=== PATIENT | female | born 1995 | race African-American/Black ===

== ENCOUNTER 2017-01-24 21:53 | Emergency (ER) | payer MEDICAID ==
[2017-01-25 00:46] LABS: APPEARANCE,URINE SLIGHTLY-CLOUDY; BILIRUBIN,URINE NEGATIVE (NEGATIVE); GLUCOSE, URINE NEGATIVE (NEGATIVE); KETONES,URINE 80 mg/dL (NEGATIVE); LEUKOCYTE ESTERASE,URINE NEGATIVE (NEGATIVE); NITRITE,URINE NEGATIVE (NEGATIVE); PROTEIN,URINE >=500 mg/dL (NEGATIVE); URINE SPECIFIC GRAVITY 1.032; UROBILINOGEN,URINE NEGATIVE mg/dL (<2.0)
[2017-01-25 00:56] LABS: URINE BARBITURATES SCREEN NEGATIVE; URINE METHADONE SCREEN NEGATIVE; URINE OPIATES LOW NEGATIVE; URINE PHENCYCLIDINE SCREEN NEGATIVE
[2017-01-25] MEDS ORDERED: NORMAL SALINE 1000 ML 1,000 ML IV ONE ×2 (02:04→05:23)
--- NOTE | 2017-01-25 02:53 | ER Document Report ---
ED General - General Chief Complaint: Psych Problem Stated Complaint: ANXIETY Notes: Patient is a 21-year-old female presented with complaint of severe depression anxiety. She had a child 5 months ago. Family's concern shows post from depression. She will not talk to her mother. The mother says she will sometimes talk to her sister little bit. For last several days she has not eaten or drank anything. I was able to get the patient talk to me some. She says that she's been depressed and feels as of she is not feeling her full meaning of life. She says she is also depressed because her relationship with her baby's father is not good. She feels as if there could be more to this relationship. When I ask if she is suicidal she says she knows that doing something to herself will be wrong and therefore she does not think that she would do anything to herself however she is very depressed. She has no other complaints this time. No previous history of depression. TRAVEL OUTSIDE OF THE [place] IN LAST 30 DAYS: No - Related Data Allergies/Adverse Reactions: ibuprofen [From Motrin] Adverse Reaction (Mild, Verified 07/05/16 16:45) GI upset Past Medical History - Social History Smoking Status: Current Every Day Smoker Chew tobacco use (# tins/day): No Frequency of alcohol use: Social Drug Abuse: Marijuana Family History: None, Reviewed & Not Pertinent Patient has suicidal ideation: No Patient has homicidal ideation: Yes Endocrine Medical History: Denies: Hx Diabetes Mellitus Type 1 Renal/ Medical History: Denies: Hx Peritoneal Dialysis - Immunizations Immunizations up to date: No Hx Diphtheria, Pertussis, Tetanus Vaccination: No Review of Systems - Review of Systems Notes: My Normal Review Basic REVIEW OF SYSTEMS: CONSTITUTIONAL : Denies fever, chills, or sweats. Denies recent illness. EENT: Denies eye, ear, throat, or mouth pain or symptoms. Denies nasal or sinus congestion. CARDIOVASCULAR: Denies chest pain. RESPIRATORY: Denies cough, cold, or chest congestion. Denies shortness of breath, difficulty breathing, or wheezing. GASTROINTESTINAL: Denies abdominal pain. Denies nausea, vomiting, or diarrhea. Denies constipation. Last BM: MUSCULOSKELETAL: Denies neck or back pain or joint pain or swelling. SKIN: Denies rash or skin lesions. NEUROLOGICAL: Denies altered mental status or loss of consciousness. Denies headache. Denies weakness or paralysis or loss of use of either side. Denies problems with gait or speech. Denies sensory or motor loss. PSYCHIATRIC: Depression and anxiety. ALL OTHER SYSTEMS REVIEWED AND NEGATIVE. Physical Exam - Vital signs Vitals: Temp Pulse Resp BP Pulse Ox 97.9 F 106 H 18 113/81 99 01/24/17 22:36 01/24/17 22:36 01/24/17 22:36 01/24/17 22:36 01/24/17 22:36 - Notes Notes: General Appearance: Well nourished, alert, cooperative, no acute distress, no obvious discomfort. Poor eye contact. Vitals: reviewed, See vital signs table. Head: no swelling or tenderness to the head Eyes: PERRL, EOMI, Conjuctiva clear Mouth: No decreasd moisture Neck: Supple, no neck tenderness, No thyromegaly Lungs: No wheezing, No rales, No rhonci, No accessory muscle use, good air exchange bilaterally. Heart: Normal rate, Regular rythm, No murmur, no rub Skin: warm, dry, appropriate color, no rash Neuro: speech clear, oriented x 3, normal affect, responds appropriately to questions. Course - Vital Signs Vital signs: Temp Pulse Resp BP Pulse Ox 98.4 F 114 H 14 122/79 98 01/25/17 02:10 01/25/17 02:10 01/25/17 02:10 01/25/17 02:10 01/25/17 02:10 - Laboratory Result Diagrams: 01/25/17 02:30 01/25/17 02:30 Laboratory results interpreted by me: 01/24/17 01/25/17 23:13 02:30 Carbon Dioxide 14 L Anion Gap 25 H Glucose 73 L Calcium 10.9 H Total Protein 9.0 H Albumin 5.5 H Urine Protein >=500 H Urine Ketones 80 H Urine Blood LARGE H Urine Ascorbic Acid 20 H Salicylates < 1.0 L Acetaminophen < 10 L - EKG Interpretation by Me Additional EKG results interpreted by me: 01/25/17 02:52 EKG is reviewed and interpreted by me. EKG shows sinus tachycardia with a rate of [address] segment elevation or depression. No ischemic T wave inversions. MI interval, castration, QTC levels are within normal range. No old EKG available for comparison. - Transfer of Care Notes: 01/25/17 05:24 Patient is acidotic and his ketonuria. I suspect is because she has not been eating or drinking anything for last several days. I've given her 2 L of fluids. She otherwise clinically looks well. I do think she needs help because she does have significant depression. I have counseled the psychiatry team to evaluate and speak with her. She's medically stable for psychiatric evaluation. 01/25/17 06:06 01/25/17 06:11 Patient is actually feeling improved. Her was comes the room. Her, her boyfriend, and her mother talks. At this time she wants to go home. I still offered for her to stay to speak with her psychiatrist. Her mother says that she's made an appointment with the psychiatrist for January 29 and that she will also make an appointment to see the [facility]. I informed the patient that only focal splinter go home if she is feeling better and if she agrees she will start eating. I informed her that she started to come acidotic she was eating at all. Patient does agree and says she will start eating. Patient does agree to return to ER she has recurrence of worsening depression, any thoughts of suicide, or she feels unwell in anyway. The mother says that she will keep a close eye on her and make sure that the patient stays with her until they go to the psychiatrist. Dictation of this chart was performed using voice recognition software; therefore, there may be some unintended grammatical errors. 01/25/17 06:12 Discharge - Discharge Clinical Impression: Dehydration, Metabolic acidosis Depression Qualifiers: Depression Type: unspecified Qualified Code(s): F32.9 - Major depressive disorder, single episode, unspecified Condition: Good Disposition: HOME, SELF-CARE Additional Instructions: Please follow up closely with the appointment with the psychiatrist. Please return to the ER immediately if you develop worsening pain, fevers, vomiting, or feel unwell. Please follow up with the [facility] as well. It is very important you eat so that you do not become more acidotic. If you do not eat again you must return to the ER so we can treat you further. Referrals: LARON URIBE MD [Primary Care Provider] - 01/28/17
[2017-01-25 03:07] LABS: ABSOLUTE BASOPHILS # (AUTO) 0.1 10^3/uL (0.0-0.2); ABSOLUTE EOSINOPHILS # (AUTO) 0.1 10^3/uL (0.0-0.6); ABSOLUTE MONOCYTES (AUTO) 0.7 10^3/uL (0.1-1.4); ABSOLUTE NEUT (AUTO) 5.8 10^3/uL (1.7-8.2); BASOPHILS % (AUTO) 0.8 % (0-2); EOSINOPHILS % (AUTO) 1.5 % (0-6); HEMATOCRIT 41.8 % (36.0-47.0); HEMOGLOBIN 14.1 g/dL (12.0-15.5); HGB HCT DIFFERENCE 0.5; LYMPHOCYTES % (AUTO) 31.3 % (13-45); MEAN CORPUSCULAR HGB CONC 33.7 g/dL (32.0-36.0); MEAN CORPUSCULAR VOLUME 92 fl (80-97); MONOCYTES % (AUTO) 7.3 % (3-13); RED BLOOD COUNT 4.55 10^6/uL (3.72-5.28); RED CELL DISTRIBUTION WIDTH 13.9 % (11.5-14.0); SEGMENTED NEUTROPHILS % (AUTO) 59.1 % (42-78); WHITE BLOOD COUNT 9.7 10^3/uL (4.0-10.5)
[2017-01-25 03:21] LABS: ALANINE AMINOTRANSFERASE 27 U/L (9-52); ALBUMIN 5.5 g/dL (3.5-5.0); ALKALINE PHOSPHATASE 77 U/L (38-126); ASPARTATE AMINO TRANSFERASE 22 U/L (14-36); BILIRUBIN,TOTAL 1.3 mg/dL (0.2-1.3); BLOOD UREA NITROGEN 12 mg/dL (7-20); CALCIUM 10.9 mg/dL (8.4-10.2); CARBON DIOXIDE 14 mmol/L (22-30); CREATININE RESULT 0.77 mg/dL (0.52-1.25); GLUCOSE 73 mg/dL (75-110); POTASSIUM 4.4 mmol/L (3.6-5.0); SODIUM 141.6 mmol/L (137-145)
[2017-01-25 03:43] LABS: ALCOHOL < 10 mg/dL (NONE DETECTED)
[2017-01-25 03:50] LABS: CHLORIDE 103 mmol/L (98-107)
[2017-01-25 03:53] LABS: ANION GAP 25 (5-19)
[2017-01-25] MEDS ORDERED: LORAZEPAM INJ 2 MG/1 ML VIAL IV ONE (04:21)
[2017-01-25 07:55] VITALS: BP 117/71
--- NOTE | 2017-01-25 10:59 | PSYCHOLOGICAL NOTE ---
Psych Note - Psych Note Psych Note: Consult requested for Psychiatric Consult; Patient discharged prior to being seen.
--- NOTE | 2017-01-25 16:57 | EKG REPORT ---
SEVERITY:- ABNORMAL ECG - SINUS TACHYCARDIA ST ELEVATION SUGGESTS PERICARDITIS : Confirmed by: Kayleigh Shearer MD 25-Jan-2017 16:56:21
== END 2017-01-25 07:52 | disposition home or self-care (01) ==
LOC: ER 21:53
DX: F41.9 Anxiety disorder, unspecified (principal); F32.9 Major depressive disorder, single episode, unspecified; E87.2 Acidosis; E86.0 Dehydration; F17.200 Nicotine dependence, unspecified, uncomplicated; R00.0 Tachycardia, unspecified
CPT/HCPCS: 93005; 99284; 96361; 96374; 36415; 80307 ×4; 82728; 85025; 80053; 81001; 93010; J2060; J7030

== ENCOUNTER 2017-01-28 16:02 | Emergency (ER) | payer MEDICAID ==
--- NOTE | 2017-01-28 16:18 | ER Document Report ---
ED General - General Stated Complaint: PSYCH EVAL Mode of Arrival: Medic Information source: Emergency Med Personnel, H Records Notes: 21-year-old female history of depression presents today with complaints of refusing to speak and being combative. Patient was seen here recently for similar complaints Patient's only statement to me is that she is "I'm straight" and refuses to speak otherwise TRAVEL OUTSIDE OF THE [place] IN LAST 30 DAYS: No - HPI Onset: Other Onset/Duration: Persistent Quality of pain: No pain Severity: Mild Pain Level: Denies Associated symptoms: None Exacerbated by: Denies Relieved by: Denies Similar symptoms previously: No Recently seen / treated by doctor: No - Related Data Allergies/Adverse Reactions: ibuprofen [From Motrin] Adverse Reaction (Mild, Verified 07/05/16 16:45) GI upset Past Medical History - Social History Smoking Status: Never Smoker Cigarette use (# per day): No Chew tobacco use (# tins/day): No Smoking Education Provided: No Family History: None, Reviewed & Not Pertinent Endocrine Medical History: Denies: Hx Diabetes Mellitus Type 1 Renal/ Medical History: Denies: Hx Peritoneal Dialysis - Immunizations Immunizations up to date: No Hx Diphtheria, Pertussis, Tetanus Vaccination: No Review of Systems - Review of Systems Notes: REVIEW OF SYSTEMS: CONSTITUTIONAL : Denies fever, chills, or sweats. Denies recent illness. EENT: Denies eye, ear, throat, or mouth pain or symptoms. Denies nasal or sinus congestion or discharge. Denies throat, tongue, or mouth swelling or difficulty swallowing. CARDIOVASCULAR: Denies chest pain. Denies palpitations or racing or irregular heart beat. Denies ankle edema. RESPIRATORY: Denies cough, cold, or chest congestion. Denies shortness of breath, difficulty breathing, or wheezing. GASTROINTESTINAL: Denies abdominal pain or distention. Denies nausea, vomiting , or diarrhea. Denies blood in vomitus, stools, or per rectum. Denies black, tarry stools. Denies constipation. GENITOURINARY: Denies difficulty urinating, painful urination, burning, frequency, blood in urine, or discharge. FEMALE GENITOURINARY: Denies vaginal bleeding, heavy or abnormal periods, irregular periods. Denies vaginal discharge or odor. MUSCULOSKELETAL: Denies back or neck pain or stiffness. Denies joint pain or swelling. SKIN: Denies rash, lesions or sores. HEMATOLOGIC : Denies easy bruising or bleeding. LYMPHATIC: Denies swollen, enlarged glands. NEUROLOGICAL: Denies confusion or altered mental status. Denies passing out or loss of consciousness. Denies dizziness or lightheadedness. Denies headache. Denies weakness or paralysis or loss of use of either side. Denies problems with gait or speech. Denies sensory loss, numbness, or tingling. Denies seizures. PSYCHIATRIC: Noted to have depression ALL OTHER SYSTEMS REVIEWED AND NEGATIVE. Dictation was performed using [employer] voice recognition software PHYSICAL EXAMINATION: GENERAL: Well-appearing, well-nourished and in no acute distress. HEAD: Atraumatic, normocephalic. EYES: Pupils equal round and reactive to light, extraocular movements intact, conjunctiva are normal. ENT: Nares patent, oropharynx clear without exudates. Moist mucous membranes. NECK: Normal range of motion, supple without lymphadenopathy LUNGS: Breath sounds clear to auscultation bilaterally and equal. No wheezes rales or rhonchi. HEART: Regular rate and rhythm without murmurs ABDOMEN: Soft, nontender, nondistended abdomen. No guarding, no rebound. No masses appreciated. Female : deferred Musculoskeletal: Normal range of motion, no pitting or edema. No cyanosis. NEUROLOGICAL: Normal speech when she does choose to speak PSYCH: Flat affect SKIN: Warm, Dry, normal turgor, no rashes or lesions noted. Course - Re-evaluation Re-evalutation: 01/28/17 17:53 Patient will be held for mental health evaluation, at this time given that she is combative and refusing speak I'm unable to clear her mentally or physically she is stable - Laboratory Result Diagrams: 01/28/17 16:50 01/28/17 16:50 Laboratory results interpreted by me: 01/28/17 16:50 Potassium 3.5 L Salicylates < 1.0 L Acetaminophen < 10 L - EKG Interpretation by Ar EKG shows normal: Sinus rhythm, [place], Intervals, QRS Complexes Discharge - Discharge Clinical Impression: Anxiety, Combative behavior Depression Qualifiers: Depression Type: unspecified Qualified Code(s): F32.9 - Major depressive disorder, single episode, unspecified Condition: Stable Disposition: PSYCH HOSP/UNIT Referrals: JOJO,LARON, MD [Primary Care Provider] - Follow up as needed
[2017-01-28 17:14] LABS: ABSOLUTE BASOPHILS # (AUTO) 0.1 10^3/uL (0.0-0.2); ABSOLUTE EOSINOPHILS # (AUTO) 0.1 10^3/uL (0.0-0.6); ABSOLUTE LYMPHOCYTES (AUTO) 2.6 10^3/uL (0.5-4.7); ABSOLUTE MONOCYTES (AUTO) 0.3 10^3/uL (0.1-1.4); ABSOLUTE NEUT (AUTO) 3.7 10^3/uL (1.7-8.2); BASOPHILS % (AUTO) 1.2 % (0-2); HEMATOCRIT 36.2 % (36.0-47.0); HEMOGLOBIN 12.5 g/dL (12.0-15.5); HGB HCT DIFFERENCE 1.3; LYMPHOCYTES % (AUTO) 38.3 % (13-45); MEAN CORPUSCULAR HEMOGLOBIN 31.3 pg (27.0-33.4); MEAN CORPUSCULAR HGB CONC 34.4 g/dL (32.0-36.0); MEAN CORPUSCULAR VOLUME 91 fl (80-97); MONOCYTES % (AUTO) 4.5 % (3-13); RED BLOOD COUNT 3.98 10^6/uL (3.72-5.28); RED CELL DISTRIBUTION WIDTH 13.6 % (11.5-14.0); WHITE BLOOD COUNT 6.8 10^3/uL (4.0-10.5)
[2017-01-28 17:33] LABS: ALANINE AMINOTRANSFERASE 28 U/L (9-52); ALBUMIN 4.7 g/dL (3.5-5.0); ALKALINE PHOSPHATASE 62 U/L (38-126); ANION GAP 17 (5-19); ASPARTATE AMINO TRANSFERASE 19 U/L (14-36); BILIRUBIN,TOTAL 0.7 mg/dL (0.2-1.3); BLOOD UREA NITROGEN 11 mg/dL (7-20); CALCIUM 10.2 mg/dL (8.4-10.2); CARBON DIOXIDE 23 mmol/L (22-30); CHLORIDE 103 mmol/L (98-107); CREATININE RESULT 0.77 mg/dL (0.52-1.25); GLUCOSE 76 mg/dL (75-110); POTASSIUM 3.5 mmol/L (3.6-5.0); TOTAL PROTEIN 7.5 g/dL (6.3-8.2)
[2017-01-28 17:36] LABS: ALCOHOL < 10 mg/dL (NONE DETECTED)
--- NOTE | 2017-01-28 21:03 | EKG REPORT ---
SEVERITY:- OTHERWISE NORMAL ECG - SINUS TACHYCARDIA : Confirmed by: Sim Winters MD 28-Jan-2017 21:02:52
--- NOTE | 2017-01-29 08:18 | PSYCHOLOGICAL NOTE ---
Psych Note - Psych Note Psych Note: Patient is a 21 year old female who presented yesterday afternoon directly from her provider's office via EMS. Patient is reportedly diagnosed with Depression and presented yesterday to her provider nonverbal, and was noted as combative. Patient was administered Versed by EMS. ED MD petitioned IVC over concerns for her safety and the safety of others. Patient did present to [facility] ED last week, around 01/24 and was referred for psychiatric consultation; however, agreed to various precautionary measures with her family and MD, and was discharged prior to consultation. Patient this morning continues to not verbally engage. Patient stares. Patient advised that per the IVC process her packet had been sent to various psychiatric facilities for consideration for placement. Patient was asked to canelo her eyes if she understood, which she did. Patient was accepted to [facility] at [address] web[address]. Entered patient's room to make her aware of her pending transfer ands she asked what that meant. Explained the process again to the patient in regards to IVC information, transfer via [facility], and psychiatric placement. Patient prompted to call her mother to make her aware, which she seemed to decline. Will notify on her behalf. Patient's motherTraci : Number no longer in service. Depression, per history Patient is recommended to follow through with psychiatric treatment under IVC. I consulted with Dr. Villagomez in regards to the care and management of this patient. ED MD is in agreement with disposition and recommendations.
--- NOTE | 2017-01-29 10:17 | ER Document Report ---
Doctor's Note Notes: 01/29/17 10:15 Rounds: Chart reviewed and patient interviewed. Limited interview because patient barely answers any questions. She stares at the examiner but does not respond, except occasionally. There is speculation in her chart that she may be experiencing depression. Patient answers that she does have a baby, but will not tell me how old her baby is. Vital signs are all normal. Labs are all normal except no urine has been obtained to do a drug screen. I' ve ordered a cathetered urine if the patient does not urinate now. Patient appears to be medically stable for transfer or discharge. Akanksha Powers M.D.
[2017-01-29 11:20] LABS: APPEARANCE,URINE SLIGHTLY-CLOUDY; BILIRUBIN,URINE NEGATIVE (NEGATIVE); GLUCOSE, URINE NEGATIVE (NEGATIVE); KETONES,URINE 80 mg/dL (NEGATIVE); LEUKOCYTE ESTERASE,URINE NEGATIVE (NEGATIVE); NITRITE,URINE NEGATIVE (NEGATIVE); PROTEIN,URINE 30 mg/dL (NEGATIVE); URINE SPECIFIC GRAVITY 1.032
[2017-01-29 11:29] LABS: URINE BARBITURATES SCREEN NEGATIVE; URINE METHADONE SCREEN NEGATIVE; URINE OPIATES LOW NEGATIVE; URINE PHENCYCLIDINE SCREEN NEGATIVE
[2017-01-29 17:31] VITALS: BP 112/78
== END 2017-01-29 14:40 ==
LOC: ER 16:02
DX: F41.9 Anxiety disorder, unspecified (principal); F53 Mental and behavioral disorders associated with the puerperium, not elsewhere classified
CPT/HCPCS: 36415; 51701; 80053; 80307; 81001; 84703; 85025; 93005; 93010; 99285

== ENCOUNTER 2017-03-11 17:18 | Emergency (ER) | payer MEDICAID, OTHER ==
--- NOTE | 2017-03-11 18:15 | ER Document Report ---
ED Medical Screen (RME) - General Chief Complaint: Psych Problem Stated Complaint: PSYCH EVAL Notes: Patient is being seen to be evaluated for withdrawal and not communicative. She was here a couple of months ago when she was and felt to have depression. Subsequently, she's been in a mental facility. She has medications from her discharge from there for Wellbutrin, Zyprexa, Paxil, but the person here with her says she's not been taking them. He says that for the past 2 days, she's only spoke to him for about 30 minutes this morning but no one else. Patient will not answer any questions asked of her. TRAVEL OUTSIDE OF THE [place] IN LAST 30 DAYS: No - Related Data Allergies/Adverse Reactions: ibuprofen [From Motrin] Adverse Reaction (Mild, Verified 07/05/16 16:45) GI upset Past Medical History - Social History Family history: None. denies: Arthritis, CAD, CVA, DM, Hyperlipidemia, Hypertension, Malignancy, Thyroid Disfunction Endocrine Medical History: Denies: Hx Diabetes Mellitus Type 1 Renal/ Medical History: Denies: Hx Peritoneal Dialysis - Immunizations Immunizations up to date: No Hx Diphtheria, Pertussis, Tetanus Vaccination: No Physical Exam - Vital signs Vitals: Temp Pulse Resp BP Pulse Ox 97.9 F 113 H 20 126/78 H 98 03/11/17 17:46 03/11/17 17:46 03/11/17 17:46 03/11/17 17:46 03/11/17 17:46 Course - Vital Signs Vital signs: Temp Pulse Resp BP Pulse Ox 97.9 F 113 H 20 126/78 H 98 03/11/17 17:46 03/11/17 17:46 03/11/17 17:46 03/11/17 17:46 03/11/17 17:46
[2017-03-11 18:29] LABS: ABSOLUTE BASOPHILS # (AUTO) 0.1 10^3/uL (0.0-0.2); ABSOLUTE EOSINOPHILS # (AUTO) 0.1 10^3/uL (0.0-0.6); ABSOLUTE LYMPHOCYTES (AUTO) 2.3 10^3/uL (0.5-4.7); ABSOLUTE MONOCYTES (AUTO) 0.6 10^3/uL (0.1-1.4); ABSOLUTE NEUT (AUTO) 5.7 10^3/uL (1.7-8.2); EOSINOPHILS % (AUTO) 0.7 % (0-6); HEMATOCRIT 43.5 % (36.0-47.0); HEMOGLOBIN 14.2 g/dL (12.0-15.5); HGB HCT DIFFERENCE -0.9; LYMPHOCYTES % (AUTO) 26.3 % (13-45); MEAN CORPUSCULAR HEMOGLOBIN 30.4 pg (27.0-33.4); MEAN CORPUSCULAR HGB CONC 32.7 g/dL (32.0-36.0); MEAN CORPUSCULAR VOLUME 93 fl (80-97); MONOCYTES % (AUTO) 6.8 % (3-13); RED BLOOD COUNT 4.68 10^6/uL (3.72-5.28); RED CELL DISTRIBUTION WIDTH 14.1 % (11.5-14.0); SEGMENTED NEUTROPHILS % (AUTO) 65.2 % (42-78); WHITE BLOOD COUNT 8.7 10^3/uL (4.0-10.5)
--- NOTE | 2017-03-11 18:59 | ER Document Report ---
ED Psych Disorder / Suicide - General Mode of Arrival: Ambulatory Information source: Relative - TRAVEL OUTSIDE OF THE [place] IN LAST 30 DAYS: No - HPI Patient complains to provider of: Bizarre behavior Onset: Other - 1 week ago Associated symptoms: Other - see notes above <MARY KHAN - Last Filed: 03/11/17 18:51> <JOHANN MARTINO - Last Filed: 03/11/17 20:05> - General Chief Complaint: Psych Problem Stated Complaint: PSYCH EVAL Notes: 21 year old female presents to the ED accompanied by her who states that the patient's behaviour has changed drastically since being checked into a mental health facility 1 week ago. states that she was brought into the ED 2 months ago and was diagnosed with post-partem depression (5 months post- partem at that time). states that she was sent to a mental health facility last week "against her will." Since coming back, the patient has not been acting herself and the is afraid that the facility or medication have influenced this. states that the patient has not been involved in any trauma or has been sick recently. states that the patient is not homicidal, suicidal, or experiencing hallucinations. Patient only eats and drinks when helped by her . Patient has not been taking her medications, because it makes her feel off. Patient was on Paxil, Welbutrin, and Zyprexa. Patient is currently 7 months post-partem. (MARY KHAN) - Related Data Allergies/Adverse Reactions: ibuprofen [From Motrin] Adverse Reaction (Mild, Verified 07/05/16 16:45) GI upset Past Medical History - General Information source: Patient - Social History Smoking Status: Current Every Day Smoker - hasn't smoked since developing symptoms Family History: None, Reviewed & Not Pertinent - Immunizations Immunizations up to date: No Hx Diphtheria, Pertussis, Tetanus Vaccination: No <MARY KHAN - Last Filed: 03/11/17 18:51> Review of Systems - Review of Systems Constitutional: No symptoms reported. denies: Recent illness EENT: No symptoms reported Cardiovascular: No symptoms reported Respiratory: No symptoms reported Gastrointestinal: No symptoms reported Genitourinary: No symptoms reported Female Genitourinary: No symptoms reported Musculoskeletal: No symptoms reported Skin: No symptoms reported Hematologic/Lymphatic: No symptoms reported Neurological/Psychological: See HPI, Other - Change in behavior. denies: Hallucinations, Homicidal ideation, Suicidal ideation -: Yes All other systems reviewed and negative <MARY KHAN - Last Filed: 03/11/17 18:51> Physical Exam - General General appearance: Alert, Other - Patient is non-verbal, with poor eye contact , but does not resist to examination. In distress: None - HEENT Head: Normocephalic, Atraumatic Eyes: Normal Extraocular movements intact: Yes Pupils: PERRL - Respiratory Respiratory status: No respiratory distress Breath sounds: Normal - Cardiovascular Rhythm: Regular Heart sounds: Normal auscultation - Abdominal Inspection: Normal - Back Back: Normal - Extremities General upper extremity: Normal inspection, Normal ROM General lower extremity: Normal inspection, Normal ROM - Neurological Neuro grossly intact: Yes Cognition: Other - patient is non-verbal Speech: No: Normal - patient is non-verbal - Psychological Associated symptoms: Normal affect, Normal mood - Skin Skin Temperature: Warm Skin Moisture: Dry Skin Color: Normal <MARY KHAN - Last Filed: 03/11/17 18:51> Course - Laboratory Result Diagrams: 03/11/17 18:00 03/11/17 18:00 <MARY KHAN - Last Filed: 03/11/17 18:51> - Laboratory Result Diagrams: 03/11/17 18:00 03/11/17 18:00 <JOHANN MARTINO - Last Filed: 03/11/17 20:05> - Re-evaluation Re-evalutation: 03/11/17 20:04 The patient wanted to leave. She is still not talking to us but she is communicating well with her . He does not believe she is a harm to herself or others and has given no indication as well. He wanted more education on the medications which I gave them. He will be by her side and will return if she shows any evidence of harm to herself or others, or if her global functioning is poor to the point she is not eating or taking care of herself. (JOHANN MARTINO) - Vital Signs Vital signs: Temp Pulse Resp BP Pulse Ox 97.9 F 113 H 20 126/78 H 98 03/11/17 17:46 03/11/17 17:46 03/11/17 17:46 03/11/17 17:46 03/11/17 17:46 - Laboratory Laboratory results interpreted by me: 03/11/17 03/11/17 18:00 18:00 RDW 14.1 H Sodium 146.5 H Anion Gap 22 H Calcium 10.8 H Total Protein 8.7 H Albumin 5.4 H Salicylates < 1.0 L Acetaminophen < 10 L Discharge <MARY KHAN - Last Filed: 03/11/17 18:51> <JOHANN MARTINO - Last Filed: 03/11/17 20:05> - Discharge Clinical Impression: Selective mutism Condition: Good Disposition: HOME, SELF-CARE Additional Instructions: Please contact her counselor to get help. Please return immediately or call 911 if there is any evidence that she might hurt herself or harm someone else. Scribe Attestation: 03/11/17 20:04 I personally performed the services described in the documentation, reviewed and edited the documentation which was dictated to the scribe in my presence, and it accurately records my words and actions. (JOHANN MARTINO) Scribe Documentation - Scribe Written by Miguelangel:: Miguelangel Rueda, 03/11/2017 1902 acting as scribe for :: Ozzy <MARY KHAN - Last Filed: 03/11/17 18:51>
[2017-03-11 19:02] LABS: ALANINE AMINOTRANSFERASE 21 U/L (9-52); ALBUMIN 5.4 g/dL (3.5-5.0); ALKALINE PHOSPHATASE 68 U/L (38-126); ASPARTATE AMINO TRANSFERASE 17 U/L (14-36); BILIRUBIN,DIRECT 0.2 mg/dL (0.0-0.4); BILIRUBIN,TOTAL 0.9 mg/dL (0.2-1.3); BLOOD UREA NITROGEN 13 mg/dL (7-20); CALCIUM 10.8 mg/dL (8.4-10.2); CREATININE RESULT 0.78 mg/dL (0.52-1.25); GLUCOSE 92 mg/dL (75-110); TOTAL PROTEIN 8.7 g/dL (6.3-8.2)
[2017-03-11 19:03] LABS: ALCOHOL < 10 mg/dL (NONE DETECTED)
[2017-03-11 19:18] LABS: ANION GAP 22 (5-19); CHLORIDE 103 mmol/L (98-107); POTASSIUM 4.9 mmol/L (3.6-5.0)
[2017-03-11 19:19] LABS: CARBON DIOXIDE 22 mmol/L (22-30); SODIUM 146.5 mmol/L (137-145)
[2017-03-11 20:19] VITALS: BP 120/75
--- NOTE | 2017-03-13 07:27 | EKG REPORT ---
SEVERITY:- ABNORMAL ECG - SINUS TACHYCARDIA ST ELEVATION , NORMAL VARIANT : Confirmed by: Sim Winters MD 13-Mar-2017 07:26:50
== END 2017-03-11 20:11 | disposition home or self-care (01) ==
LOC: ER 17:18
DX: F94.0 Selective mutism (principal); F32.9 Major depressive disorder, single episode, unspecified; Z79.899 Other long term (current) drug therapy; F17.200 Nicotine dependence, unspecified, uncomplicated
CPT/HCPCS: 36415; 80053; 80307; 84703; 85025; 93005; 93010; 99284

== ENCOUNTER 2017-03-13 01:26 | Emergency (ER) | payer MEDICAID, OTHER ==
--- NOTE | 2017-03-13 01:57 | ER Document Report ---
ED Psych Disorder / Suicide - General Chief Complaint: Psych Problem Stated Complaint: PSYCH EVAL Time seen by provider: 01:56 Mode of Arrival: Stretcher Information source: Relative TRAVEL OUTSIDE OF THE [place] IN LAST 30 DAYS: No - HPI Patient complains to provider of: Bizarre behavior Onset was: Gradual Suicide Risk Factors: Depressed Normal mood: No Associated symptoms: Flat affect, Tearful, Uncooperative Similar symptoms previously: Yes Recently seen / treated by doctor: Yes Notes: Patient is a 21-year-old female with a history of mental illness and possible depression, who was brought to the emergency room by her of 5 days, for complaints of worsening depression, patient has been despondent at home, not eating or drinking, she has not taken her mental health medications for the past month, she has been crying, has become increasingly nonverbal, her has been carrying her around the house leaving her and attempting to feed her, patient was recently seen in this emergency room for similar symptoms , and transferred to a mental health facility, patient's reports since being discharged from there she seems to have gotten worse, at time of evaluation patient is tearful, makes eye contact at times but refuses to answer any questions - Related Data Allergies/Adverse Reactions: ibuprofen [From Motrin] Adverse Reaction (Mild, Verified 07/05/16 16:45) GI upset Past Medical History - General Information source: Relative - Social History Smoking Status: Current Every Day Smoker Chew tobacco use (# tins/day): No Frequency of alcohol use: None Drug Abuse: None Family History: None, Reviewed & Not Pertinent Patient has suicidal ideation: No - UNABLE TO ASSESS; PT APHASIC Patient has homicidal ideation: No - UNABLE TO ASSESS; PT APHASIC Endocrine Medical History: Denies: Hx Diabetes Mellitus Type 1 Renal/ Medical History: Denies: Hx Peritoneal Dialysis Surgical Hx: Negative - Immunizations Immunizations up to date: No Hx Diphtheria, Pertussis, Tetanus Vaccination: No Review of Systems - Review of Systems -: Yes ROS unobtainable due to patient's medical condition Constitutional: No symptoms reported EENT: No symptoms reported Cardiovascular: No symptoms reported Respiratory: No symptoms reported Gastrointestinal: No symptoms reported Genitourinary: No symptoms reported Female Genitourinary: No symptoms reported Musculoskeletal: No symptoms reported Skin: No symptoms reported Hematologic/Lymphatic: No symptoms reported Neurological/Psychological: See HPI Physical Exam - Vital signs Vitals: Temp Pulse Resp BP Pulse Ox 98.0 F 135 H 20 121/68 97 03/13/17 01:30 03/13/17 01:30 03/13/17 01:30 03/13/17 01:30 03/13/17 01:30 Interpretation: Tachycardic - General General appearance: Alert - HEENT Head: Normocephalic, Atraumatic Eyes: Normal Conjunctiva: Normal Extraocular movements intact: Yes Eyelashes: Normal Pupils: PERRL Mucous membranes: Normal Pharynx: Normal - Respiratory Respiratory status: No respiratory distress Chest status: Nontender Breath sounds: Normal Chest palpation: Normal - Cardiovascular Rhythm: Regular, Tachycardia Heart sounds: Normal auscultation Murmur: No - Abdominal Inspection: Normal Distension: No distension Bowel sounds: Normal Tenderness: Nontender Organomegaly: No organomegaly - Back Back: Normal - Extremities General upper extremity: Normal inspection, Normal color, Normal temperature General lower extremity: Normal inspection, Normal color, Normal temperature. No: Melanie's sign - Neurological So Coma Scale Eye Opening: Spontaneous So Coma Scale Verbal: None [place] Coma Scale Motor: Obeys Commands So Coma Scale Total: 11 Sensory: Normal - Psychological Associated symptoms: Tearful, Uncooperative, Other - Nonverbal - Skin Skin Temperature: Warm Skin Moisture: Dry Skin Color: Normal Course - Re-evaluation Re-evalutation: 03/13/17 03:43 Patient remains nonverbal on evaluation, she is tearful, reports he fears for her safety, she has been increasingly depressed and despondent at home , no longer caring for her own basic needs, therefore patient was placed on IVC paper work so that she can be further evaluated by the mental health team, she is otherwise stable and medically clear for transfer or discharge - Vital Signs Vital signs: Temp Pulse Resp BP Pulse Ox 98.0 F 135 H 20 121/68 97 03/13/17 01:30 03/13/17 01:30 03/13/17 01:30 03/13/17 01:30 03/13/17 01:30 - Laboratory Result Diagrams: 03/13/17 02:05 03/13/17 02:05 Laboratory results interpreted by me: 03/13/17 02:05 Sodium 147.1 H Carbon Dioxide 20 L Anion Gap 22 H Calcium 10.5 H Total Protein 8.5 H Albumin 5.2 H Salicylates < 1.0 L Acetaminophen < 10 L - EKG Interpretation by Ne EKG shows normal: Sinus rhythm Rate: Tachycardia Discharge - Discharge Disposition: PSYCH HOSP/UNIT
[2017-03-13 02:20] LABS: ABSOLUTE BASOPHILS # (AUTO) 0.1 10^3/uL (0.0-0.2); ABSOLUTE EOSINOPHILS # (AUTO) 0.2 10^3/uL (0.0-0.6); ABSOLUTE LYMPHOCYTES (AUTO) 2.1 10^3/uL (0.5-4.7); ABSOLUTE MONOCYTES (AUTO) 0.5 10^3/uL (0.1-1.4); ABSOLUTE NEUT (AUTO) 4.6 10^3/uL (1.7-8.2); BASOPHILS % (AUTO) 1.1 % (0-2); EOSINOPHILS % (AUTO) 2.1 % (0-6); HEMATOCRIT 40.2 % (36.0-47.0); HEMOGLOBIN 13.5 g/dL (12.0-15.5); HGB HCT DIFFERENCE 0.3; LYMPHOCYTES % (AUTO) 28.6 % (13-45); MEAN CORPUSCULAR HEMOGLOBIN 30.7 pg (27.0-33.4); MEAN CORPUSCULAR HGB CONC 33.7 g/dL (32.0-36.0); MEAN CORPUSCULAR VOLUME 91 fl (80-97); MONOCYTES % (AUTO) 6.8 % (3-13); RED BLOOD COUNT 4.41 10^6/uL (3.72-5.28); RED CELL DISTRIBUTION WIDTH 13.5 % (11.5-14.0); SEGMENTED NEUTROPHILS % (AUTO) 61.4 % (42-78); WHITE BLOOD COUNT 7.5 10^3/uL (4.0-10.5)
[2017-03-13 02:33] LABS: ALANINE AMINOTRANSFERASE 22 U/L (9-52); ALBUMIN 5.2 g/dL (3.5-5.0); ALKALINE PHOSPHATASE 69 U/L (38-126); ASPARTATE AMINO TRANSFERASE 18 U/L (14-36); BILIRUBIN,DIRECT 0.4 mg/dL (0.0-0.4); BLOOD UREA NITROGEN 17 mg/dL (7-20); CALCIUM 10.5 mg/dL (8.4-10.2); CARBON DIOXIDE 20 mmol/L (22-30); CREATININE RESULT 0.81 mg/dL (0.52-1.25); GLUCOSE 86 mg/dL (75-110); TOTAL PROTEIN 8.5 g/dL (6.3-8.2)
[2017-03-13 02:34] LABS: ALCOHOL < 10 mg/dL (NONE DETECTED)
[2017-03-13 02:40] LABS: CHLORIDE 105 mmol/L (98-107); POTASSIUM 4.6 mmol/L (3.6-5.0); SODIUM 147.1 mmol/L (137-145)
[2017-03-13 02:43] LABS: ANION GAP 22 (5-19)
[2017-03-13 12:01] LABS: APPEARANCE,URINE CLOUDY; BILIRUBIN,URINE NEGATIVE (NEGATIVE); GLUCOSE, URINE NEGATIVE (NEGATIVE); KETONES,URINE 80 mg/dL (NEGATIVE); LEUKOCYTE ESTERASE,URINE NEGATIVE (NEGATIVE); NITRITE,URINE NEGATIVE (NEGATIVE); PROTEIN,URINE 100 mg/dL (NEGATIVE); URINE SPECIFIC GRAVITY 1.034; UROBILINOGEN,URINE NEGATIVE mg/dL (<2.0)
[2017-03-13 12:33] LABS: URINE BARBITURATES SCREEN NEGATIVE; URINE METHADONE SCREEN NEGATIVE; URINE OPIATES LOW NEGATIVE; URINE PHENCYCLIDINE SCREEN NEGATIVE
[2017-03-13] MEDS ORDERED: OLANZAPINE 5 MG TABLET PO SCH (13:45)
[2017-03-13] MEDS ORDERED: BENZTROPINE MESYLATE 1 MG TABLET PO SCH (13:45)
[2017-03-13] MEDS ORDERED: BENZTROPINE MESYLATE 1 MG TABLET PO ONE (14:30)
[2017-03-13] MEDS ORDERED: OLANZAPINE 5 MG TABLET PO ONE (14:45)
--- NOTE | 2017-03-13 18:10 | PSYCHOLOGICAL NOTE ---
Psych Note - Psych Note Psych Note: Patient is a 21-year-old female with a history of mental illness and possible depression, who was brought to the emergency room by her of 5 days, for complaints of worsening depression, patient has been despondent at home, not eating or drinking, she has not taken her mental health medications for the past month, she has been crying, has become increasingly nonverbal, her has been carrying her around the house leaving her and attempting to feed her, patient was recently seen in this emergency room for similar symptoms , and transferred to a mental health facility, patient's reports since being discharged from there she seems to have gotten worse, at time of evaluation patient is tearful, makes eye contact at times but refuses to answer any questions when clinician walked into room and said good morning, patient responded "good morning." Patient attempted to disengage and present as mute. Clinician stated to patient that since she stated good morning, she might as well continue talking with clinician. While patient answered in limited words (one or two) or movements of her head, the patient communicated with clinician. Patient requested her to stay during the evaluation. Patient states that she does not know when she started to feel different. She stated that she does not have a provider for mental health and is not taking any medications. Clinician spoke with patient's . He stated the patient and he have been having family discord with their parents. He stated they were because of them and the patient did not take this well. He continued to disclose the patient had a diagnosis of depression. He continued to state she went in patient to [facility] but has been off her medication since the 13 of February. Patient is alert and orientated to person, place, time and circumstance. mood is dysphoric with flat affect. Patient choosing when to engage in conversation with others which is not consistent with psychosis rather it is manifestations of personality schemas patient is demonstrate possible responses to internal stimuli. Eye contact was well maintained. depression per history provided by patient's spouse. 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 Patient will be reevaluated. Dr. Villagomez was consult on the care and management of this patient ; attending physician is in agreement with recommendations and disposition.
[2017-03-13] MEDS: OLANZAPINE 5 MG TABLET PO SCH (22:04)
[2017-03-14] MEDS ORDERED: BENZTROPINE MESYLATE 1 MG TABLET PO SCH (10:00)
--- NOTE | 2017-03-14 10:08 | ER Document Report ---
ED Psych Disorder / Suicide - General Mode of Arrival: Stretcher Information source: Patient - patient provided little information but did speak with clinician, Relative - Spouse TRAVEL OUTSIDE OF THE [place] IN LAST 30 DAYS: No - HPI Patient complains to provider of: Other Onset: Other - Child Normal mood: Yes Associated symptoms: Normal affect, Normal mood, Increased appetite <OBI CORDOBA - Last Filed: 03/14/17 09:58> <AYAZ MCCOY - Last Filed: 03/14/17 10:39> - General Chief Complaint: Psych Problem Stated Complaint: PSYCH EVAL - HPI Notes: Patient is a 21-year-old female with a history of mental illness and possible depression, who was brought to the emergency room by her of 5 days, for complaints of worsening depression, patient has been despondent at home, not eating or drinking, she has not taken her mental health medications for the past month, she has been crying, has become increasingly nonverbal, her has been carrying her around the house leaving her and attempting to feed her, patient was recently seen in this emergency room for similar symptoms , and transferred to a mental health facility, patient's reports since being discharged from there she seems to have gotten worse, at time of evaluation patient is tearful, makes eye contact at times but refuses to answer any questions Patient engaged with clinician and spoke Clinician conducted a chart review and received verbal report from attending; patient is reported to be laughing, eating all night and having visitors at 11pm. Patient is no longer demonstrating any behaviours indicating psychosis. Patient is alert and orientated to person, place, time and circumstance. Mood is euthymic with congruent affect. Patient denies suicidal and homicidal ideation. Thought process is logical and linear. Eye contact was well maintained. Intellectual abilities appear to be within average range. Attention and concentration are good. Insight, judgment, impulse control are fair. depression per history provided by patient and patient's family Impression\plan: Patient is recommended for rescind of IVC is considered psychiatrically cleared for discharge. Patient is no longer demonstrating any symptoms of psychosis engaging with clinician, speaking freely, and is noted to be laughing and eating. Patient is recommended to follow up with outpatient provider of choice; resource lists have been provided to patient. Dr. Villagomez was consulted on the care and management of this patient; attending physician is in agreement with recommendations and disposition. (OBI CORDOBA) - Related Data Allergies/Adverse Reactions: ibuprofen [From Motrin] Adverse Reaction (Mild, Verified 07/05/16 16:45) GI upset Past Medical History - General Information source: Relative - Social History Smoking Status: Current Every Day Smoker Chew tobacco use (# tins/day): No Frequency of alcohol use: None Drug Abuse: None Family History: None, Reviewed & Not Pertinent Patient has suicidal ideation: No - UNABLE TO ASSESS; PT APHASIC Patient has homicidal ideation: No - UNABLE TO ASSESS; PT APHASIC Endocrine Medical History: Denies: Hx Diabetes Mellitus Type 1 Renal/ Medical History: Denies: Hx Peritoneal Dialysis Surgical Hx: Negative - Immunizations Immunizations up to date: No Hx Diphtheria, Pertussis, Tetanus Vaccination: No <OBI CORDOBA - Last Filed: 03/14/17 09:58> Course - Laboratory Result Diagrams: 03/13/17 02:05 03/13/17 02:05 <OBI CORDOBA - Last Filed: 03/14/17 09:58> - Laboratory Result Diagrams: 03/13/17 02:05 03/13/17 02:05 <AYAZ MCCOY - Last Filed: 03/14/17 10:39> - Re-evaluation Re-evalutation: 03/14/17 10:37 Pt seen and evaluated by myself mental health. Denies suicidality or any other complaints. More interactive throughout the night per the nurse. Psychologist is recommending beginning Zyprexa 5 mg twice a day and Cogentin 1 mg daily with follow-up at [facility]. Patient and mom are comfortable with plan. (AYAZ MCCOY) - Vital Signs Vital signs: Temp Pulse Resp BP Pulse Ox 98.8 F 109 H 16 112/65 99 03/14/17 06:58 03/14/17 06:58 03/14/17 06:58 03/14/17 06:58 03/14/17 06:58 - Laboratory Laboratory results interpreted by me: 03/13/17 03/13/17 02:05 11:45 Sodium 147.1 H Carbon Dioxide 20 L Anion Gap 22 H Calcium 10.5 H Total Protein 8.5 H Albumin 5.2 H Urine Protein 100 H Urine Ketones 80 H Urine Blood MODERATE H Salicylates < 1.0 L Acetaminophen < 10 L Discharge <OBI CORDOBA - Last Filed: 03/14/17 09:58> <AYAZ MCCOY - Last Filed: 03/14/17 10:39> - Discharge Clinical Impression: Mental disorder Condition: Good Disposition: HOME, SELF-CARE Additional Instructions: DEPRESSION: Your evaluation reveals that you have mental depression. While symptoms may be vague, they often include disturbance of sleep, fatigue, loss of appetite , and general loss of interest in life. While depression may be a side effect of drugs, or a reaction to a major change in your life, many cases have no known cause. If depression is acute, and related to a major loss in your life, you can expect it to clear completely with time. If you have been depressed a long time , are prone to repeated bouts of depression or low mood, or have been thinking of suicide, get help. Depression can be treated with anti-depressant medication and counselling. Long-term depression will often take a few weeks to clear, even with appropriate medication. Follow-up care is important. FOLLOW-UP CARE: If you have been referred to a physician for follow-up care, call the physician s office for an appointment as you were instructed or within the next two days. ~ If you experience worsening or a significant change in your symptoms, notify the physician immediately or return to the Emergency Department at any time for re-evaluation. Prescriptions: Benztropine Mesylate [Cogentin 1 mg Tablet] 1 tab PO DAILY #7 tab Olanzapine [Zyprexa 5 mg Tablet] 5 mg PO Q12 #14 tablet Referrals: [facility] [Outside] - Follow up as needed
[2017-03-14] MEDS: OLANZAPINE 5 MG TABLET PO SCH (10:34)
[2017-03-14 11:21] VITALS: BP 104/68
== END 2017-03-14 11:21 | disposition home or self-care (01) ==
LOC: ER 01:26
DX: F99 Mental disorder, not otherwise specified (principal); F53 Mental and behavioral disorders associated with the puerperium, not elsewhere classified; F17.200 Nicotine dependence, unspecified, uncomplicated
CPT/HCPCS: 36415; 80307 ×4; 84703; 85025; 80053; 81001; J3490 ×4; 99285

== ENCOUNTER 2018-09-09 15:20 | Outpatient (CLI) | payer MEDICAID ==
[2018-09-09 16:08] LABS: APPEARANCE,URINE CLEAR; BILIRUBIN,URINE NEGATIVE (NEGATIVE); COLOR,URINE YELLOW; GLUCOSE, URINE NEGATIVE (NEGATIVE); KETONES,URINE NEGATIVE (NEGATIVE); LEUKOCYTE ESTERASE,URINE LARGE (NEGATIVE); NITRITE,URINE NEGATIVE (NEGATIVE); PROTEIN,URINE NEGATIVE (NEGATIVE)
[2018-09-09 16:11] LABS: URINE SPECIFIC GRAVITY 1.021
[2018-09-09 16:33] LABS: URINE AMPHETAMINES SCREEN NEGATIVE; URINE BARBITURATES SCREEN NEGATIVE; URINE BENZODIAZEPINES SCREEN NEGATIVE; URINE COCAINE SCREEN NEGATIVE; URINE METHADONE SCREEN NEGATIVE; URINE PHENCYCLIDINE SCREEN NEGATIVE
[2018-09-09 16:41] LABS: URINE MARIJUANA (THC) SCREEN UNCONFIRMED POSITIVE
--- NOTE | 2018-09-09 17:34 | Non Stress Test Report ---
Non Stress Test Datetime Report Generated by CPN: 09/09/2018 17:34 DEMOGRAPHIC EGA NST: 39.6 INDICATION Indication for Study: Ordered by Provider MONITORING Monitor Explained: Monitor Explained; Test Explained; Patient Verbalized Understanding Time on Monitor: 09/09/2018 15:45 Time off Monitor: 09/09/2018 16:05 NST Duration: 20 NST INTERVENTIONS NST Interventions: None Physician Notified NST: Shaji, MD BABY A: [id number] BABY A Movement : Present Contraction Frequency : x2 FHR Baseline : 130 Accelerations : 15X15 Decelerations : None Variability : Moderate 6-25bpm NST Review: Meets Criteria for Reactive NST NST Review and Verified By : Reed Cardoza RN NST Results: Reactive NST REPORT Report Trigger: Send Report
== END 2018-09-09 17:41 | disposition home or self-care (01) ==
LOC: LC 15:20
PROVIDERS: ATTEND Obstetrics & Gynecology
PROC: 4A1HXCZ Monitoring of Products of Conception, Cardiac Rate, External Approach (ICD-10-PCS; principal; 2018-09-09)
DX: O47.1 False labor at or after 37 completed weeks of gestation (principal); Z3A.39 39 weeks gestation of pregnancy
CPT/HCPCS: 59025; 80307; 81005

== ENCOUNTER 2018-09-10 05:42 | Inpatient (IN) | payer MEDICAID ==
[2018-09-10 06:23] LABS: APPEARANCE,URINE CLEAR; BILIRUBIN,URINE NEGATIVE (NEGATIVE); COLOR,URINE STRAW; GLUCOSE, URINE NEGATIVE (NEGATIVE); KETONES,URINE 100 mg/dL (NEGATIVE); LEUKOCYTE ESTERASE,URINE LARGE (NEGATIVE); NITRITE,URINE NEGATIVE (NEGATIVE); PROTEIN,URINE NEGATIVE (NEGATIVE)
[2018-09-10 06:24] LABS: URINE SPECIFIC GRAVITY 1.015
[2018-09-10] MEDS ORDERED: RINGERS SOLUTION,LACTATED 1,000 ML IV PRN (06:32)
[2018-09-10] MEDS ORDERED: PENICILLIN G-K 5 MILLION UNIT VIAL ONE (06:32)
[2018-09-10 06:37] LABS: URINE AMPHETAMINES SCREEN NEGATIVE; URINE BARBITURATES SCREEN NEGATIVE; URINE BENZODIAZEPINES SCREEN NEGATIVE; URINE COCAINE SCREEN NEGATIVE; URINE METHADONE SCREEN NEGATIVE; URINE PHENCYCLIDINE SCREEN NEGATIVE
[2018-09-10 06:38] LABS: URINE MARIJUANA (THC) SCREEN UNCONFIRMED POSITIVE
[2018-09-10] MEDS ORDERED: PENICILLIN G POTASSIUM 5,000,000 UNIT in DEXTROSE 5%-WATER 100 ML IV ONE (07:00)
[2018-09-10 07:10] LABS: ABSOLUTE BASOPHILS # (AUTO) 0.1 10^3/uL (0.0-0.2); ABSOLUTE EOSINOPHILS # (AUTO) 0.1 10^3/uL (0.0-0.6); ABSOLUTE LYMPHOCYTES (AUTO) 2.5 10^3/uL (0.5-4.7); ABSOLUTE MONOCYTES (AUTO) 0.6 10^3/uL (0.1-1.4); ABSOLUTE NEUT (AUTO) 6.5 10^3/uL (1.7-8.2); BASOPHILS % (AUTO) 1.3 % (0-2); EOSINOPHILS % (AUTO) 0.7 % (0-6); HEMATOCRIT 32.8 % (36.0-47.0); HEMOGLOBIN 11.2 g/dL (12.0-15.5); LYMPHOCYTES % (AUTO) 25.3 % (13-45); MEAN CORPUSCULAR HEMOGLOBIN 30.3 pg (27.0-33.4); MEAN CORPUSCULAR HGB CONC 34.2 g/dL (32.0-36.0); MEAN CORPUSCULAR VOLUME 88 fl (80-97); MONOCYTES % (AUTO) 5.8 % (3-13); PLATELET COUNT 412 10^3/uL (150-450); RED BLOOD COUNT 3.71 10^6/uL (3.72-5.28); RED CELL DISTRIBUTION WIDTH 13.7 % (11.5-14.0); SEGMENTED NEUTROPHILS % (AUTO) 66.9 % (42-78); TOTAL CELLS COUNTED % (AUTO) 100 %; WHITE BLOOD COUNT 9.7 10^3/uL (4.0-10.5)
[2018-09-10] MEDS ORDERED: FENTANYL/BUPIVACAINE/NS/PF 0 MCG/0 ML RTUINJ EPI ONE (08:10)
[2018-09-10] MEDS ORDERED: EPHEDRINE SULFATE INJ 50 MG/1 ML AMPULE ONE (08:11)
[2018-09-10] MEDS ORDERED: BUPIVACAINE HCL 0.5 % INJ/PF 30 ML SDV ONE ×2 (08:13)
--- NOTE | 2018-09-10 08:32 | Admission Physical ---
Datetime Report Generated by CPN: 09/10/2018 08:32 CURRENT ADMISSION Chief Complaint: Uterine Contractions Chief Complaint Other: contractions Indication for Induction: Not Applicable Admit Impression : Active Labor Admit Plan: Initiate Labor Protocol Admit Plan- Other: + GBS ALLERGIES Medication Allergies: ibuprofen/[place]/GI upset (09/10/2018) OBSTETRICAL HISTORY EDC: 09/10/2018 00:00 : 2 Para: 1 Term: 1 : 0 SAB: 0 IAB: 0 Ectopic: 0 Livin Cesareans: 0 VBACs: 0 Multiple Births: 0 Gestational Diabetes: No Rh Sensitization: No Incompetent Cervix: No XANDER: No Infertility: No ART Treatment: No Uterine Anomaly: No IUGR: No Hx Previous C/S: No Macrosomia: No Hx Loss/Stillborn: No PIH: No Hx : No Placenta Previa/Abruption: No Depression/PP Depression: Yes PTL/PROM: No Post Hemorrhage: No Current Procedures: Ultrasound Obstetrical History Comments: G1 - TERM, G2 SEE RECORDS Alcohol: No Marijuana : No Cocaine: No Other Illicit Drugs: No Cigarettes: Never Smoker. 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 Surgery: No Heart Disease: No Hosp/Surgery: No Autoimmune Disorder: No Anesthetic Complications: No Kidney Disease: No Abnormal Pap Smear: No Neuro/Epilepsy: No Psychiatric Disorders: No Other Medical Diseases: No Hepatitis/Liver Disease: No Significant Family History: No Varicosities/Phlebitis: No Trauma/Violence : No Thyroid Dysfunction: No Medical History Comments: ANEMIA INFECTIOUS HISTORY Gonorrhea: No Genital Herpes: No Chlamydia: No Tuberculosis: No Syphilis: No Hepatitis: No HIV/AIDS Exposure: No Rash or Viral Illness: No HPV: No PHYSICAL EXAM General: Normal HEENT: Deferred Neurologic: Normal Thyroid: Deferred Heart: Normal Lungs: Normal Breast: Deferred Back: Deferred Abdomen: Normal Genitourinary Exam: Normal Extremities: Normal DTRs: Deferred Pelvic Type: Adequate VAGINAL EXAM Dilatation: 8 Effacement: 100 Station: -2 Contraction Comments: 2min MEMBRANES Membranes: Bulging FETUS A EGA: 40.0 Monitoring: External US Variability: Moderate 6-25bpm Accelerations: 15X15 Decelerations: None FHR Category: Category I Presentation: Vertex Admit Comment: GBS +, received 1 dose PCN wants Epidural PLANS FOR LABOR AND DELIVERY Labor and Delivery: None Pain Management: Epidural Feeding Preference: Breast Benefit of Breast Feed Discussed: Yes Circumcision: Yes INFORMED CONSENT Assignment: Cierra Tavarez MD Signature: with User ID: [email or web address] : with User ID: [email or web address]
[2018-09-10] MEDS ORDERED: LIDOCAINE 1% INJ-PF (10 MG/ML) 30 ML SDV ONE (09:20)
[2018-09-10] MEDS ORDERED: IBUPROFEN 800 MG TABLET ONE (10:56)
[2018-09-10] MEDS ORDERED: PENICILLIN G POTASSIUM 2,500,000 UNIT in DEXTROSE 5%-WATER 50 ML IV SCH (12:00)
[2018-09-10] MEDS ORDERED: OXYTOCIN/NORMAL SALINE 20 UNIT/1,000 ML RTUINJ IV PRN (12:15)
[2018-09-10] MEDS ORDERED: MEASLES,MUMPS&RUBELLA VACC/PF 0.5 ML VIAL SUBCUT PRN ×2 (12:15→16:00)
[2018-09-10] MEDS ORDERED: BENZOCAINE/MENTHOL AEROSOL SPRAY 56 ML TOP PRN (12:15)
[2018-09-10] MEDS ORDERED: ZOLPIDEM TARTRATE 5 MG TABLET PO PRN (12:15)
[2018-09-10] MEDS ORDERED: DIPH/PERTUSS(ACELL)/TETANUS VAC/PF 0.5 ML SYR (>=10YO) IM PRN ×2 (12:15→16:00)
[2018-09-10] MEDS ORDERED: ACETAMINOPHEN WITH CODEINE #3 TABLET PO PRN ×2 (12:15)
[2018-09-10] MEDS ORDERED: DIBUCAINE 1% OINTMENT 28 GM TP PRN (12:15)
--- NOTE | 2018-09-10 12:27 | Delivery Summary ---
Del Sum A-C Datetime Report Generated by CPN: 09/10/2018 12:27 DELIVERY PERSONNEL DELIVERY PERSONNEL: [id number] Delivery Doctor:: Hansa House CNM Labor and Delivery Nurse:: Blossom Zeng RN Labor and Delivery Nurse:: AIYANA VILLA Jet Worker/CAP PARTS CUTTER: Eileen Toussaint, FLIGHT STEWARD MATERNAL INFORMATION Delivery Anesthesia: Local; Pudendal Medications After Delivery: Pitocin Bolus-Please Comment; Pitocin Drip 20 Units/1000ml NSS Maternal Complications: None Provider Comments: Pt progressed rapidly to 9 cm from admission, with BBOW, Dr. Foster did Pudendal block per pt request. Unable to get epidural d/t advanced dilation. AROM with clear fluid after pudendal, pt advanced to complete dilation and began pushing. Male Baby DIANA with tight shoulders, reduced with Quinten. Infant vigorous, to mothers abd. Cord clamped x 2 cut per FOB. 3VC, placenta via House, intact. Lidocaine used prior to repair as above. Urethra cleaned with betadine x 3 prior to insertion of cath for repair. 9, 10. LABOR SUMMARY EDC: 09/10/2018 00:00 No. Babies in Womb: 1 Attempted: No Labor Anesthesia: PUDENDAL LABOR INFORMATION Reason for Induction: Not Applicable Reason for Induction- Other: n/a Onset of Labor: 09/10/2018 04:00 Complete Dilatation: 09/10/2018 08:42 Oxytocin: N/A Group B Beta Strep: positive Antibiotics # of Doses: 1 Antibiotics Time of Last Dose: 0700 Name of Antibiotic Given: PENICILLIN-G Steroids Given: None Reason Steroids Not Administered: Not Applicable MEMBRANES Membranes Rupture Method: Artificial Amniotic Fluid Color: Clear Amniotic Fluid Amount: Scant STAGES OF LABOR Stage 1 hr: 4 Stage 1 min: 42 Stage 2 hr: 0 Stage 2 min: 35 Stage 3 hr: 0 Stage 3 min: 8 Total Time in Labor hr: 5 Total Time in Labor min: 25 VAGINAL DELIVERY Episiotomy: None Laceration #1: Periurethral Laceration Extension #1: First Degree Laceration Repair: Yes Laceration Repair Note: 4.0 chromic used for periurethral/periclitoral labs Lidocaine Sponge Count Correct: N/A Sharps Count Correct: N/A BABY A INFORMATION Infant Delivery Date/Time: 09/10/2018 09:17 Method of Delivery: Vaginal Born in Route : No : N/A Forceps: N/A Vacuum Extraction: N/A Shoulder Dystocia : No PRESENTATION/POSITION BABY A Presentation: Cephalic Cephalic Presentation: Vertex Vertex Position: Left Occipital Anterior Breech Presentation: N/A PLACENTA INFORMATION BABY A Placenta Delivery Time : 09/10/2018 09:25 Placenta Method of Delivery: Spontaneous Placenta Status: Delivered SCORES BABY A Heart Rate 1 min: >100 bpm Resp Effort 1 min: Good Cry Reflex Irritability 1 min: Cough or Sneeze or Pulls Away Muscle Tone 1 min: Active Motion Color 1 min: Body [place], Extremities Blue Resuscitation Effort 1 min: Tactile Stimulation SCORE 1 MIN: 9 Heart Rate 5 min: >100 bpm Resp Effort 5 min: Good Cry Reflex Irritability 5 min: Cough or Sneeze or Pulls Away Muscle Tone 5 min: Active Motion Color 5 min: Completely [place] Resuscitation Effort 5 min: Tactile Stimulation SCORE 5 MIN: 10 INFANT INFORMATION BABY A Gestational Age at Delivery: 40.0 Gestational Status: Full Term- 39- 40.6 Weeks Infant Outcome : Liveborn Infant Condition : Stable Sex: Male IDENTIFICATION BABY A Verification Date/Time: 09/10/2018 09:46 ID Band Number: [id number] Mother's Name Verified: Yes RN Verifying : Mendoza Girard, RN, CAlia Rojas, RN WEIGHT/LENGTH BABY A Infant Birthweight (gm): 3470 Weight (lb): 7 Infant Weight (oz): 10 Infant Length (in): 19.00 Infant Length (cm): 48.26 CORD INFORMATION BABY A No. Cord Vessels: 3 Nuchal Cord : N/A Cord Blood Taken: Yes-For Eval (Mom's Blood Type - or O+) Suction: None ASSESSMENT BABY A Infant Complications: None Physical Findings at Delivery: Within Normal Limits Respirations: Appears Normal Skin to Skin: Yes Auto Dealer/ALS Called : No Infant Care By: Torito PEREZ RN/ CLEMENCIA ZENG RN Transferred To: Remains with Mother BABY B INFORMATION : N/A SIGNATURES Assignment: Cierra Tavarez MD Signature: with User ID: [email or web address] : with User ID: [email or web address] : I was personally available for consultation and serving as supervising physician for the MLP.
[2018-09-10] MEDS: FERROUS SULFATE 325 MG TABLET PO SCH (17:09)
[2018-09-10] MEDS: DOCUSATE SODIUM 100 MG CAPSULE PO SCH (17:09)
[2018-09-10] MEDS: IBUPROFEN 800 MG TABLET PO SCH (22:15)
[2018-09-11] MEDS: IBUPROFEN 800 MG TABLET PO SCH ×3 (05:56→21:30)
[2018-09-11 07:36] LABS: HEMATOCRIT 25.4 % (36.0-47.0); MEAN CORPUSCULAR HEMOGLOBIN 30.3 pg (27.0-33.4); MEAN CORPUSCULAR HGB CONC 33.6 g/dL (32.0-36.0); MEAN CORPUSCULAR VOLUME 90 fl (80-97); PLATELET COUNT 318 10^3/uL (150-450); RED BLOOD COUNT 2.83 10^6/uL (3.72-5.28); RED CELL DISTRIBUTION WIDTH 14.3 % (11.5-14.0); WHITE BLOOD COUNT 12.6 10^3/uL (4.0-10.5)
[2018-09-11 07:38] LABS: HEMOGLOBIN 8.6 g/dL (12.0-15.5)
--- NOTE | 2018-09-11 09:16 | PDOC PROGRESS REPORT ---
Subjective-OB Progress Note for:: 09/11/18 Subjective: Doing well, no c/o Physical Exam (OB) Vital Signs: Temp Pulse Resp BP Pulse Ox 98.2 F 68 17 115/74 98 09/11/18 08:22 09/11/18 08:22 09/11/18 08:22 09/11/18 08:22 09/11/18 08:22 Intake & Output 09/10/18 09/11/18 09/12/18 06:59 06:59 06:59 Intake Total 1100 Balance 1100 Weight 81.1 kg - PIH/Pre-Eclampsia Headache: Absent Epigastric Pain: No Visual Changes: No - Lochia Lochia Amount: Scant < 10 ml Lochia Color: Rubra/Red - Abdomen Description: Tender, Soft, Round Hernia Present: No Fundal Description: Firm, Midline Fundal Height: u/u - u/2 Objective-Diagnostic Laboratory: 09/11/18 07:03 09/11/18 07:03 WBC 12.6 H RBC 2.83 L Hgb 8.6 L D Hct 25.4 L MCV 90 MCH 30.3 MCHC 33.6 RDW 14.3 H Plt Count 318 Assessment and Plan(PN) - Assessment and Plan (1) Anemia due to acute blood loss Is this a current diagnosis for this admission?: Yes (2) Positive GBS test Is this a current diagnosis for this admission?: Yes (3) Vaginal delivery Is this a current diagnosis for this admission?: Yes - Time Spent with Patient Time with patient: Less than 15 minutes Medications reviewed and adjusted accordingly: Yes - Disposition Anticipated Discharge: Home Within: within 24 hours
[2018-09-11] MEDS: SENNOSIDES/DOCUSATE 8.6-50 MG 1 EACH TABLET PO SCH (09:56)
[2018-09-11] MEDS: PRENATAL VITAMIN W DHA CAPSULE PO SCH (09:56)
[2018-09-11] MEDS: FERROUS SULFATE 325 MG TABLET PO SCH ×2 (09:56→17:31)
[2018-09-11] MEDS: DOCUSATE SODIUM 100 MG CAPSULE PO SCH ×2 (09:56→17:32)
[2018-09-12] MEDS: IBUPROFEN 800 MG TABLET PO SCH (05:07)
[2018-09-12 08:16] VITALS: BP 105/67
[2018-09-12] MEDS: DOCUSATE SODIUM 100 MG CAPSULE PO SCH (09:16)
[2018-09-12] MEDS: PRENATAL VITAMIN W DHA CAPSULE PO SCH (09:17)
[2018-09-12] MEDS: SENNOSIDES/DOCUSATE 8.6-50 MG 1 EACH TABLET PO SCH (09:17)
[2018-09-12] MEDS: FERROUS SULFATE 325 MG TABLET PO SCH (09:17)
--- NOTE | 2018-09-12 09:29 | PDOC DISCHARGE SUMMARY ---
Final Diagnosis Discharge Date: 09/12/18 - Day #2 - Final Diagnosis (1) Anemia due to acute blood loss Is this a current diagnosis for this admission?: Yes (2) Abnormal AFP screen Is this a current diagnosis for this admission?: Yes (3) Positive GBS test Is this a current diagnosis for this admission?: Yes (4) Is this a current diagnosis for this admission?: Yes (5) Vaginal delivery Is this a current diagnosis for this admission?: Yes Discharge Data - Discharge Medication Prescriptions: Ibuprofen [Motrin 800 mg Tablet] 800 mg PO Q8 PRN #60 tablet PRN Reason: Pain Scale Of 2 Home Medications: Vit Calc,Iron,Folic [ Vitamins] 1 each PO DAILY 09/09/18 Ibuprofen [Motrin 800 mg Tablet] 800 mg PO Q8 PRN #60 tablet 09/12/18 Reason(s) for Admission: Onset of Labor Procedures: Ultrasound Intrapartum Procedure(s): Spontaneous Vaginal Delivery Complication(s): Laceration-Perineal, Hemorrhage-Uterine Atony Laceration-Degree: 1st - Diagnosis Test Laboratory: Temp Pulse Resp BP Pulse Ox 98.5 F 88 18 105/67 97 09/12/18 07:32 09/12/18 07:32 09/12/18 07:32 09/12/18 07:32 09/12/18 07:32 09/10/18 09/10/18 09/11/18 05:49 06:49 07:03 RBC 3.71 L 2.83 L Hgb 11.2 L 8.6 L D Hct 32.8 L 25.4 L Urine Opiates Screen NEGATIVE - Discharge information/Instructions Discharge Activity: Activity As Tolerated, Pelvic Rest Discharge Diet: As Tolerated, Regular Disposition: HOME, SELF-CARE Follow up with: [facility] in: 4, Weeks
== END 2018-09-12 11:25 | disposition home or self-care (01) | DRG 806 ==
LOC: LC 05:42 → LR 06:33 → 2S 12:11
PROVIDERS: ADMIT Obstetrics & Gynecology; ATTEND Obstetrics & Gynecology
PROC: 10E0XZZ Delivery of Products of Conception, External Approach (ICD-10-PCS; principal; 2018-09-10)
PROC: 0UQMXZZ Repair Vulva, External Approach (ICD-10-PCS; 2018-09-10)
PROC: 4A1HXCZ Monitoring of Products of Conception, Cardiac Rate, External Approach (ICD-10-PCS; 2018-09-10)
PROC: 3E02340 Introduction of Influenza Vaccine into Muscle, Percutaneous Approach (ICD-10-PCS; 2018-09-12)
DX: O99.824 Streptococcus B carrier state complicating childbirth (principal); D62 Acute posthemorrhagic anemia; Z37.0 Single live birth; O99.02 Anemia complicating childbirth; O72.1 Other immediate postpartum hemorrhage; O71.82 Other specified trauma to perineum and vulva; Z3A.40 40 weeks gestation of pregnancy; Z23 Encounter for immunization
CPT/HCPCS: 36415; 80307; 80349; 81005; 85025; 85027; 86592; 86850; 86900; 86901; 90471; 90686; G0008; G0480; J2540; J3010; J3490

== ENCOUNTER 2019-04-01 11:20 | Emergency (ER) | payer MEDICAID ==
--- NOTE | 2019-04-01 11:57 | ER Document Report ---
ED Medical Screen (RME) - General Chief Complaint: Abdominal Pain Stated Complaint: ABDOMINAL PAIN Time Seen by Provider: 04/01/19 11:49 Mode of Arrival: Ambulatory Information source: Patient TRAVEL OUTSIDE OF THE [place] IN LAST 30 DAYS: No - HPI Patient complains to provider of: PREG, CRAMPING Notes: 04/01/19 11:55 Patient here with complaints of lower abdominal pain and cramping. Patient is approximately 6 weeks , G3, P2. She states for the last week she is been having lower abdominal cramping and feels like she should be bleeding but she is not having any vaginal bleeding. No discharge. No fever. She has had some mild nausea and vomited once. She denies any chest pain or shortness of breath. She has an O+ blood type. Exam Nontoxic, no distress. Mild lower abdominal tenderness on limited triage abdominal exam. Lungs clear and equal throughout. Heart sounds normal. Plan CBC, CMP, lipase, urine, quantitative hCG, pelvic ultrasound. Patient has O+ blood type. An initial examination was made on the patient as part of the triage process, and it was determined a more comprehensive evaluation was necessary. Initial labs were ordered and patient was transferred to another provider in the ED who assumed care and finished evaluation and plan. - Related Data Allergies/Adverse Reactions: No Known Allergies Allergy (Verified 04/01/19 11:52) Past Medical History - Social History Chew tobacco use (# tins/day): No Frequency of alcohol use: None Drug Abuse: None Family history: None. denies: Arthritis, CAD, CVA, DM, Hyperlipidemia, Hypertension, Malignancy, Thyroid Disfunction Endocrine Medical History: Denies: Hx Diabetes Mellitus Type 1 Renal/ Medical History: Denies: Hx Peritoneal Dialysis - Immunizations Immunizations up to date: No Hx Diphtheria, Pertussis, Tetanus Vaccination: No Physical Exam - Vital signs Vitals: Temp Pulse Resp BP Pulse Ox 98.1 F 83 20 96/57 L 99 04/01/19 11:37 04/01/19 11:37 04/01/19 11:37 04/01/19 11:37 04/01/19 11:37 Course - Vital Signs Vital signs: Temp Pulse Resp BP Pulse Ox 98.1 F 83 20 96/57 L 99 04/01/19 11:37 04/01/19 11:37 04/01/19 11:37 04/01/19 11:37 04/01/19 11:37
[2019-04-01 12:37] LABS: ABSOLUTE EOSINOPHILS # (AUTO) 0.3 10^3/uL (0.0-0.6); ABSOLUTE LYMPHOCYTES (AUTO) 3.4 10^3/uL (0.5-4.7); ABSOLUTE MONOCYTES (AUTO) 0.4 10^3/uL (0.1-1.4); ABSOLUTE NEUT (AUTO) 4.4 10^3/uL (1.7-8.2); BASOPHILS % (AUTO) 0.5 % (0-2); EOSINOPHILS % (AUTO) 3.5 % (0-6); HEMATOCRIT 36.4 % (36.0-47.0); HEMOGLOBIN 12.4 g/dL (12.0-15.5); LYMPHOCYTES % (AUTO) 40.2 % (13-45); MEAN CORPUSCULAR HEMOGLOBIN 31.7 pg (27.0-33.4); MEAN CORPUSCULAR VOLUME 93 fl (80-97); MONOCYTES % (AUTO) 4.4 % (3-13); PLATELET COUNT 354 10^3/uL (150-450); RED BLOOD COUNT 3.91 10^6/uL (3.72-5.28); RED CELL DISTRIBUTION WIDTH 14.7 % (11.5-14.0); SEGMENTED NEUTROPHILS % (AUTO) 51.4 % (42-78); TOTAL CELLS COUNTED % (AUTO) 100 %; WHITE BLOOD COUNT 8.5 10^3/uL (4.0-10.5)
[2019-04-01 12:56] LABS: APPEARANCE,URINE SLIGHTLY-CLOUDY; BILIRUBIN,URINE NEGATIVE (NEGATIVE); COLOR,URINE AMBER; GLUCOSE, URINE NEGATIVE (NEGATIVE); KETONES,URINE TRACE mg/dL (NEGATIVE); LEUKOCYTE ESTERASE,URINE NEGATIVE (NEGATIVE); NITRITE,URINE NEGATIVE (NEGATIVE); PROTEIN,URINE NEGATIVE (NEGATIVE); URINE SPECIFIC GRAVITY 1.025; UROBILINOGEN,URINE NEGATIVE mg/dL (<2.0)
[2019-04-01 12:59] LABS: ALANINE AMINOTRANSFERASE 18 U/L (9-52); ALBUMIN 4.7 g/dL (3.5-5.0); ALKALINE PHOSPHATASE 48 U/L (38-126); ANION GAP 13 (5-19); ASPARTATE AMINO TRANSFERASE 15 U/L (14-36); BILIRUBIN,DIRECT 0.2 mg/dL (0.0-0.4); BILIRUBIN,TOTAL 0.4 mg/dL (0.2-1.3); BLOOD UREA NITROGEN 12 mg/dL (7-20); CALCIUM 9.9 mg/dL (8.4-10.2); CARBON DIOXIDE 25 mmol/L (22-30); CHLORIDE 102 mmol/L (98-107); GLUCOSE 93 mg/dL (75-110); LIPASE 71.1 U/L (23-300); POTASSIUM 4.2 mmol/L (3.6-5.0); SODIUM 139.8 mmol/L (137-145); TOTAL PROTEIN 7.6 g/dL (6.3-8.2)
[2019-04-01 14:11] LABS: CHLAM PCR NOT DETECTED (NOT DETECT); GON PCR NOT DETECTED (NOT DETECT)
--- NOTE | 2019-04-01 14:47 | ER Document Report ---
ED GI/ - General Chief Complaint: Abdominal Pain Stated Complaint: ABDOMINAL PAIN Time Seen by Provider: 04/01/19 11:49 Mode of Arrival: Ambulatory Information source: Patient Notes: Patient is a 23-year-old female comes emergency room with complaining of lower abdominal cramping. Patient states that prior to finding out she was at this time she had had the Implanon implanted in the right arm back in November 2018. Since putting that and she has had complications with it with chest pain muscle aches and pains and bleeding. She states she had been bleeding ever since it was implanted and up until the day they took it out which was February 28. On February 28 she stopped bleeding and she is not sure whether she got during the time she had the Implanon and or just after. So she is not certain of her last menses. Patient just gave 6 months ago. She is 3 para 2. She did not find this lower abdominal pain as cramping and states she is never had this with any of her other pregnancies. She denies any other medical problems and admits to stopping smoking 5 months ago TRAVEL OUTSIDE OF THE [place] IN LAST 30 DAYS: No - HPI Patient complains to provider of: Abdominal pain. No: Dysuria, Vaginal discharge, Vaginal pain, Vomiting Onset: Last week Timing/Duration: Waxing and waning Quality of pain: Cramping Severity at maximum: Moderate Severity in ED: Moderate Pain Level: 3 Location: Suprapubic Vaginal bleeding (Compared to normal period): None Menstrual period history: Abnormal LMP: Unknown see HPI : 3 Para: 2 Abortions: 0 OB ultrasound done: Yes vitamins taken: Yes Sexual history: Active Associated symptoms: None Exacerbated by: Denies Similar symptoms previously: Yes Recently seen / treated by doctor: No - He denies - Related Data Allergies/Adverse Reactions: No Known Allergies Allergy (Verified 04/01/19 11:52) Past Medical History - General Information source: Patient - Social History Smoking Status: Former Smoker Cigarette use (# per day): No Chew tobacco use (# tins/day): No Smoking Education Provided: No - She does she smoke some in the something, you may Frequency of alcohol use: None Drug Abuse: None Lives with: Alone Family History: None, Reviewed & Not Pertinent Patient has suicidal ideation: No Patient has homicidal ideation: No Endocrine Medical History: Denies: Hx Diabetes Mellitus Type 1 Renal/ Medical History: Denies: Hx Peritoneal Dialysis - Immunizations Immunizations up to date: No Hx Diphtheria, Pertussis, Tetanus Vaccination: No Review of Systems - Review of Systems Constitutional: No symptoms reported EENT: No symptoms reported Cardiovascular: No symptoms reported Respiratory: No symptoms reported Gastrointestinal: No symptoms reported Genitourinary: No symptoms reported Female Genitourinary: No symptoms reported, Musculoskeletal: No symptoms reported Skin: No symptoms reported Hematologic/Lymphatic: No symptoms reported Neurological/Psychological: No symptoms reported -: Yes All other systems reviewed and negative Physical Exam - Vital signs Vitals: Temp Pulse Resp BP Pulse Ox 98.1 F 83 20 96/57 L 99 04/01/19 11:37 04/01/19 11:37 04/01/19 11:37 04/01/19 11:37 04/01/19 11:37 Interpretation: Hypotensive - Notes Notes: PHYSICAL EXAMINATION: GENERAL: Well-appearing, well-nourished and in no acute distress. HEAD: Atraumatic, normocephalic. EYES: Pupils equal round and reactive to light, extraocular movements intact, conjunctiva are normal. ENT: Nares patent, oropharynx clear without exudates. Moist mucous membranes. NECK: Normal range of motion, supple without lymphadenopathy LUNGS: Breath sounds clear to auscultation bilaterally and equal. No wheezes rales or rhonchi. HEART: Regular rate and rhythm without murmurs ABDOMEN: Soft, nontender, nondistended abdomen. No guarding, no rebound. No m asses appreciated. Patient is a mild tenderness to palpation over suprapubic area. Rest of the lower abdominal area is negative for any kind discomfort Female : deferred\pending pelvic ultrasound Musculoskeletal: Normal range of motion, no pitting or edema. No cyanosis. NEUROLOGICAL Normal speech, normal gait. Normal sensory, motor exams PSYCH: Normal mood, normal affect. SKIN: Warm, Dry, normal turgor, no rashes or lesions noted. Course - Re-evaluation Re-evalutation: 04/01/19 15:40 Patient's ultrasound was found to return showing a single living intrauterine gestational age according to ultrasound was 7 weeks 0 days however there was no pole and there were no heart tones detected. This being confusing I contacted Dr. Henriquez [facility] and she informed me this cannot be a living given there is no pole. She is recommended a 7-day follow-up in our office for this patient. She also was very clear that I am can let patient know that we cannot tell if this is a viable at this point or not. We will monitor her hCGs as well. If patient does not have access to doing a hCG I will have her come to the emergency room one day prior to her visit with Dr. Spear so she is armed with that information. - Vital Signs Vital signs: Temp Pulse Resp BP Pulse Ox 98.1 F 83 20 96/57 L 99 04/01/19 11:37 04/01/19 11:37 04/01/19 11:37 04/01/19 11:37 04/01/19 11:37 - Laboratory Result Diagrams: 04/01/19 12:12 04/01/19 12:12 Laboratory results interpreted by me: 04/01/19 04/01/19 04/01/19 12:12 12:12 12:12 RDW 14.7 H Beta HCG, Quant 40348.00 H Urine Ketones TRACE H Urine Ascorbic Acid 20 H Discharge - Discharge Clinical Impression: Qualifiers: Weeks of gestation: less than 8 weeks Qualified Code(s): Z3A.01 - Less than 8 weeks gestation of Condition: Stable Disposition: HOME, SELF-CARE Instructions: Abdominal Pain ([facility]) Additional Instructions: As we discussed the need to contact the wound care clinic and set up an appointment for 7 days from now. Prior to that I would highly suggest getting your beta-hCG quantitative redrawn here to the emergency room to Dr. Henriquez or the collections representative will have access to that information prior to the ultrasound in their office. Should you have any new developments like bleeding or increasing pain return to ER for recheck. Forms: Follow-Up Laboratory Testing Referrals: OMAYRA HENRIQUEZ MD [ACTIVE STAFF] - Follow up as needed
--- NOTE | 2019-04-01 14:57 | RADIOLOGY REPORT (SQ) ---
EXAM DESCRIPTION: U/S OB TRANSVAGINAL W/O DOP COMPLETED DATE/TIME: 04/01/2019 2:23 pm REASON FOR STUDY: PREG, PAIN, CRAMPING COMPARISON: None. TECHNIQUE: Transvaginal static and realtime grayscale images acquired of the pelvis. Additional harriet cted spectral and color Doppler images recorded. All images stored on PACs. [facility],[address] CLINICAL DATES: Unknown LIMITATIONS: None. FINDINGS: FETUS: Single Living intrauterine . ULTRASOUND EGA: 7 weeks 0 days ULTRASOUND MAYDA: 11/18/2019 EFW: Not applicable less than 20 weeks. CRL: No pole FHR: Not detected beats per minute. SURVEY: No visualized anomalies. AMNIOTIC FLUID: Adequate amount. PLACENTA: Not yet developed due to early gestation. SUBCHORIONIC BLEED: No. SIZE OF BLEED: Not applicable. UTERUS: No masses. No anomalies. CERVICAL LENGTH: 2.5 cm Closed. RIGHT ADNEXA: Corpus luteum cyst No adnexal free fluid. No adnexal masses. LEFT ADNEXA: Ovary not identified due to poor acoustical window. No adnexal free fluid. No adnexal masses. FREE FLUID: Trace fluid OTHER: No other significant finding. IMPRESSION: Intrauterine with early estimated gestational age but no cardiac activity iden tified. No pole. EGA 7 weeks 0 days Trimester of : First - 0 to 13 weeks. TECHNICAL DOCUMENTATION: JOB ID: [id number] [employer]- All Rights Reserved Reading location - IP/workstation name: [email or web address]
[2019-04-01] MEDS ORDERED: NORMAL SALINE 1000 ML 1,000 ML IV ONE (15:11)
[2019-04-01 16:46] VITALS: BP 122/66
== END 2019-04-01 16:46 | disposition home or self-care (01) ==
LOC: ER 11:20
DX: O26.891 Other specified pregnancy related conditions, first trimester (principal); R10.9 Unspecified abdominal pain; R10.30 Lower abdominal pain, unspecified; R07.9 Chest pain, unspecified; M79.10 Myalgia, unspecified site; Z87.891 Personal history of nicotine dependence; Z3A.01 Less than 8 weeks gestation of pregnancy
CPT/HCPCS: 99284; 36415; 84702; 83690; 85025; 80053; 81001; 87491; 87591; 76817; J7030

== ENCOUNTER 2019-11-25 06:45 | Inpatient (IN) | payer MEDICAID ==
[2019-11-25] MEDS ORDERED: OXYTOCIN/NORMAL SALINE 0 UNIT/0 ML RTUINJ ONE (07:13)
[2019-11-25] MEDS ORDERED: MISOPROSTOL 0.2 MG TABLET ONE (07:13)
[2019-11-25] MEDS ORDERED: LIDOCAINE 1% INJ-PF (10 MG/ML) 30 ML SDV ONE (07:13)
[2019-11-25] MEDS ORDERED: OXYTOCIN 10 UNIT/ML VIAL ONE (07:13)
--- NOTE | 2019-11-25 07:43 | Admission Physical ---
Datetime Report Generated by CPN: 11/25/2019 07:43 CURRENT ADMISSION Chief Complaint: Uterine Contractions Indication for Induction: Not Applicable Admit Impression : Term, Intrauterine ; Active Labor Admit Plan: Admit to Unit ALLERGIES Medication Allergies: No Medication Allergies: No Known Allergies (04/01/2019) Latex: No Latex Allergies Food Allergies: none Environmental Allergies: none OBSTETRICAL HISTORY EDC: 11/25/2019 00:00 : 4 Para: 2 Term: 2 : 0 SAB: 1 IAB: 0 Ectopic: 0 Livin Cesareans: 0 VBACs: 0 Multiple Births: 0 Gestational Diabetes: No Rh Sensitization: No Incompetent Cervix: No XANDER: No Infertility: No ART Treatment: No Uterine Anomaly: No IUGR: No Hx Previous C/S: No Macrosomia: No Hx Loss/Stillborn: No PIH: No Hx : No Placenta Previa/Abruption: No Depression/PP Depression: No PTL/PROM: No Post Hemorrhage: No Current Procedures: Ultrasound; NST Obstetrical History Comments: G1: 2014 G2: 2015 no complications G3: 2017 no complications SEE RECORDS Alcohol: No Marijuana : No Cocaine: No Other Illicit Drugs: No Cigarettes: Former Smoker. [id number] Cigarette Comments: quit a year ago MEDICAL HISTORY Diabetes: No Blood Transfusion: No Pulmonary Disease (Asthma, TB): No Breast Disease: No Hypertension: No Residential Housekeeper Surgery: No Heart Disease: No Hosp/Surgery: No Autoimmune Disorder: No Anesthetic Complications: No Kidney Disease: No Abnormal Pap Smear: No Neuro/Epilepsy: No Psychiatric Disorders: No Other Medical Diseases: No Hepatitis/Liver Disease: No Significant Family History: No Varicosities/Phlebitis: No Trauma/Violence : No Thyroid Dysfunction: No INFECTIOUS HISTORY Gonorrhea: No Genital Herpes: No Chlamydia: No Tuberculosis: No Syphilis: No Hepatitis: No HIV/AIDS Exposure: No Rash or Viral Illness: No HPV: No PHYSICAL EXAM General: Normal HEENT: Normal Neurologic: Normal Thyroid: Normal Heart: Normal Lungs: Normal Breast: Deferred Back: Normal Abdomen: Normal Genitourinary Exam: Normal Extremities: Normal DTRs: Normal Pelvic Type: Adequate Vital Signs: Reviewed VAGINAL EXAM Dilatation: 10 FETUS A EGA: 40.0 Monitoring: External US FHR- Baseline: 120 Decelerations: None Admit Comment: Pt came and delivered quickly. PLANS FOR LABOR AND DELIVERY Labor and Delivery: Placenta Request Pain Management: Natural Feeding Preference: Both Benefit of Breast Feed Discussed: Yes Circumcision: Yes INFORMED CONSENT Signature: with User ID: [email or web address]
[2019-11-25] MEDS ORDERED: BENZOCAINE/MENTHOL AEROSOL SPRAY 56 ML TOP PRN (07:47)
[2019-11-25] MEDS ORDERED: OXYTOCIN/NORMAL SALINE 20 UNIT/1,000 ML RTUINJ IV PRN (07:47)
[2019-11-25] MEDS ORDERED: NA PHOS,M-B/NA PHOS,DI-BA (ADULT) 133 ML ENEMA PR PRN (07:47)
[2019-11-25] MEDS ORDERED: ZOLPIDEM TARTRATE 5 MG TABLET PO PRN (07:47)
[2019-11-25] MEDS ORDERED: ACETAMINOPHEN 650 MG SUPP.RECT PR PRN (07:47)
[2019-11-25] MEDS ORDERED: PROMETHAZINE HCL 25 MG TABLET PO PRN (07:47)
[2019-11-25] MEDS ORDERED: ACETAMINOPHEN WITH CODEINE #3 TABLET PO PRN ×2 (07:47)
[2019-11-25] MEDS ORDERED: MEASLES,MUMPS&RUBELLA VACC/PF 0.5 ML VIAL SUBCUT PRN (07:47)
[2019-11-25] MEDS ORDERED: MAGNESIUM HYDROXIDE SUSP 30 ML UDCUP PO PRN (07:47)
[2019-11-25] MEDS ORDERED: PROMETHAZINE HCL INJ 25 MG/1 ML VIAL IV PRN (07:47)
[2019-11-25] MEDS ORDERED: DIPH/PERTUSS(ACELL)/TETANUS VAC/PF 0.5 ML SYR (>=10YO) IM PRN (07:47)
[2019-11-25] MEDS ORDERED: DIPHENHYDRAMINE HCL 25 MG CAPSULE PO PRN (07:47)
[2019-11-25] MEDS ORDERED: DIBUCAINE 1% OINTMENT 28 GM TP PRN (07:47)
[2019-11-25] MEDS ORDERED: PROMETHAZINE HCL 25 MG SUPP.RECT PR PRN (07:47)
[2019-11-25] MEDS ORDERED: GLYCERIN/WITCH HAZEL LEAF 1 EACH MED..WIPE TP PRN (07:47)
[2019-11-25] MEDS ORDERED: PSEUDOEPHEDRINE HCL 30 MG TABLET PO PRN (07:47)
[2019-11-25] MEDS ORDERED: RINGERS SOLUTION,LACTATED 1,000 ML IV PRN (08:26)
[2019-11-25] MEDS ORDERED: RINGERS SOLUTION,LACTATED 1,000 ML IV ONE (08:26)
[2019-11-25 09:12] LABS: ABSOLUTE BASOPHILS # (AUTO) 0.1 10^3/uL (0.0-0.2); ABSOLUTE LYMPHOCYTES (AUTO) 1.3 10^3/uL (0.5-4.7); ABSOLUTE MONOCYTES (AUTO) 0.4 10^3/uL (0.1-1.4); ABSOLUTE NEUT (AUTO) 10.9 10^3/uL (1.7-8.2); BASOPHILS % (AUTO) 0.5 % (0-2); EOSINOPHILS % (AUTO) 0.2 % (0-6); HEMATOCRIT 34.7 % (36.0-47.0); HEMOGLOBIN 11.8 g/dL (12.0-15.5); LYMPHOCYTES % (AUTO) 10.4 % (13-45); MEAN CORPUSCULAR HEMOGLOBIN 31.1 pg (27.0-33.4); MEAN CORPUSCULAR VOLUME 91 fl (80-97); PLATELET COUNT 275 10^3/uL (150-450); RED BLOOD COUNT 3.79 10^6/uL (3.72-5.28); RED CELL DISTRIBUTION WIDTH 14.9 % (11.5-14.0); SEGMENTED NEUTROPHILS % (AUTO) 85.9 % (42-78); TOTAL CELLS COUNTED % (AUTO) 100 %; WHITE BLOOD COUNT 12.7 10^3/uL (4.0-10.5)
[2019-11-25 10:32] LABS: APPEARANCE,URINE SLIGHTLY-CLOUDY; BILIRUBIN,URINE NEGATIVE (NEGATIVE); COLOR,URINE RED; GLUCOSE, URINE NEGATIVE (NEGATIVE); KETONES,URINE NEGATIVE (NEGATIVE); LEUKOCYTE ESTERASE,URINE MODERATE (NEGATIVE); NITRITE,URINE NEGATIVE (NEGATIVE); PROTEIN,URINE 30 mg/dL (NEGATIVE); URINE SPECIFIC GRAVITY 1.008; UROBILINOGEN,URINE NEGATIVE mg/dL (<2.0)
[2019-11-25 10:47] LABS: URINE AMPHETAMINES SCREEN NEGATIVE; URINE BENZODIAZEPINES SCREEN NEGATIVE; URINE COCAINE SCREEN NEGATIVE; URINE MARIJUANA (THC) SCREEN NEGATIVE; URINE METHADONE SCREEN NEGATIVE; URINE PHENCYCLIDINE SCREEN NEGATIVE
[2019-11-25 10:55] LABS: URINE BARBITURATES SCREEN NEGATIVE
[2019-11-25] MEDS: DOCUSATE SODIUM 100 MG CAPSULE PO SCH ×2 (11:18→17:58)
[2019-11-25] MEDS: PRENATAL VITAMIN W DHA CAPSULE PO SCH (11:18)
[2019-11-25] MEDS: FERROUS SULFATE 325 MG TABLET PO SCH ×2 (11:19→17:58)
[2019-11-25] MEDS: SENNOSIDES/DOCUSATE 8.6-50 MG 1 EACH TABLET PO SCH (11:20)
[2019-11-25] MEDS: FAMOTIDINE 20 MG TABLET PO SCH ×2 (11:21→21:09)
[2019-11-25] MEDS: IBUPROFEN 800 MG TABLET PO SCH ×2 (15:07→21:08)
[2019-11-26] MEDS: IBUPROFEN 800 MG TABLET PO SCH ×3 (05:23→21:14)
[2019-11-26 06:53] LABS: HEMATOCRIT 29.3 % (36.0-47.0); MEAN CORPUSCULAR HEMOGLOBIN 30.9 pg (27.0-33.4); MEAN CORPUSCULAR VOLUME 91 fl (80-97); PLATELET COUNT 285 10^3/uL (150-450); RED BLOOD COUNT 3.23 10^6/uL (3.72-5.28); WHITE BLOOD COUNT 11.1 10^3/uL (4.0-10.5)
[2019-11-26] MEDS: SENNOSIDES/DOCUSATE 8.6-50 MG 1 EACH TABLET PO SCH (10:28)
[2019-11-26] MEDS: FAMOTIDINE 20 MG TABLET PO SCH ×2 (10:28→21:14)
[2019-11-26] MEDS: PRENATAL VITAMIN W DHA CAPSULE PO SCH (10:28)
[2019-11-26] MEDS: FERROUS SULFATE 325 MG TABLET PO SCH ×2 (10:28→17:34)
[2019-11-26] MEDS: DOCUSATE SODIUM 100 MG CAPSULE PO SCH ×2 (10:28→17:34)
--- NOTE | 2019-11-26 14:01 | PDOC PROGRESS REPORT ---
Subjective-OB Progress Note for:: 11/26/19 Subjective: reports bleeding slowing, pain controlled with current meds. denies needs Physical Exam (OB) Vital Signs: Temp Pulse Resp BP Pulse Ox 98.2 F 74 18 111/68 99 11/26/19 07:17 11/26/19 07:17 11/26/19 07:17 11/26/19 07:17 11/26/19 07:17 Intake & Output 11/25/19 11/26/19 11/27/19 06:59 06:59 06:59 Intake Total 240 Balance 240 Weight 81.5 kg - Abdomen Description: Round Hernia Present: No Fundal Description: Firm, Midline Fundal Height: u/u - u/2 - Abdominal Distension: No distension Tenderness: Nontender - Extremities Lower extremities: Melanie's sign - neg Calf: Normal, Nontender Objective-Diagnostic Laboratory: 11/26/19 06:37 11/26/19 06:37 WBC 11.1 H RBC 3.23 L Hgb 10.0 L Hct 29.3 L MCV 91 MCH 30.9 MCHC 34.0 RDW 15.0 H Plt Count 285 Assessment and Plan(PN) - Assessment and Plan (1) Carrier of group B Streptococcus Is this a current diagnosis for this admission?: Yes (2) Precipitous delivery Is this a current diagnosis for this admission?: Yes - Time Spent with Patient Time with patient: Less than 15 minutes Medications reviewed and adjusted accordingly: Yes - Disposition Anticipated Discharge: Home Within: within 24 hours
[2019-11-27] MEDS: IBUPROFEN 800 MG TABLET PO SCH (05:46)
[2019-11-27] MEDS: DOCUSATE SODIUM 100 MG CAPSULE PO SCH (09:49)
[2019-11-27] MEDS: SENNOSIDES/DOCUSATE 8.6-50 MG 1 EACH TABLET PO SCH (09:49)
[2019-11-27] MEDS: PRENATAL VITAMIN W DHA CAPSULE PO SCH (09:49)
[2019-11-27] MEDS: FERROUS SULFATE 325 MG TABLET PO SCH (09:49)
[2019-11-27] MEDS: FAMOTIDINE 20 MG TABLET PO SCH (09:59)
--- NOTE | 2019-11-27 10:59 | PDOC DISCHARGE SUMMARY ---
Impression - Admit/DC Date/PCP Admission Date/Primary Care Provider: 11/25/19 07:14 KASANDRA BELTRÁN MD Discharge Date: 11/27/19 - Discharge Diagnosis (1) Carrier of group B Streptococcus Is this a current diagnosis for this admission?: Yes (2) Precipitous delivery Is this a current diagnosis for this admission?: Yes (3) Vaginal delivery Is this a current diagnosis for this admission?: Yes - Additional Information Resuscitation Status: Full Code Discharge Diet: Regular Discharge Activity: Balance Activity w/Rest, Pelvic Rest Referrals: KASANDRA BELTRÁN MD [Primary Care Provider] - (Follow up in 4 weeks for your post evaluation. Call the office and make an appt. ) Prescriptions: Ibuprofen [Motrin 800 mg Tablet] 800 mg PO Q8HP PRN #60 tablet PRN Reason: Home Medications: Vit Calc,Iron,Folic [ Vitamins] 1 each PO DAILY 09/09/18 Ferrous Sulfate [Iron] 325 mg PO DAILY 11/25/19 Ibuprofen [Motrin 800 mg Tablet] 800 mg PO Q8HP PRN #60 tablet 11/27/19 Results Laboratory Results: WBC 11.1 10^3/uL (4.0-10.5) H 11/26/19 06:37 RBC 3.23 10^6/uL (3.72-5.28) L 11/26/19 06:37 Hgb 10.0 g/dL (12.0-15.5) L 11/26/19 06:37 Hct 29.3 % (36.0-47.0) L 11/26/19 06:37 MCV 91 fl (80-97) 11/26/19 06:37 MCH 30.9 pg (27.0-33.4) 11/26/19 06:37 MCHC 34.0 g/dL (32.0-36.0) 11/26/19 06:37 RDW 15.0 % (11.5-14.0) H 11/26/19 06:37 Plt Count 285 10^3/uL (150-450) 11/26/19 06:37 Lymph % (Auto) 10.4 % (13-45) L 11/25/19 08:40 [place] % (Auto) 3.0 % (3-13) 11/25/19 08:40 Eos % (Auto) 0.2 % (0-6) 11/25/19 08:40 Baso % (Auto) 0.5 % (0-2) 11/25/19 08:40 Absolute Neuts (auto) 10.9 10^3/uL (1.7-8.2) H 11/25/19 08:40 Absolute Lymphs (auto) 1.3 10^3/uL (0.5-4.7) 11/25/19 08:40 Absolute Monos (auto) 0.4 10^3/uL (0.1-1.4) 11/25/19 08:40 Absolute Eos (auto) 0.0 10^3/uL (0.0-0.6) 11/25/19 08:40 Absolute Basos (auto) 0.1 10^3/uL (0.0-0.2) 11/25/19 08:40 Seg Neutrophils % 85.9 % (42-78) H 11/25/19 08:40 Urine Color RED 11/25/19 10:00 Urine Appearance SLIGHTLY-CLOUDY 11/25/19 10:00 Urine pH 7.0 (5.0-9.0) 11/25/19 10:00 Ur Specific [place] 1.008 11/25/19 10:00 Urine Protein 30 mg/dL (NEGATIVE) H 11/25/19 10:00 Urine Glucose (UA) NEGATIVE mg/dL (NEGATIVE) 11/25/19 10:00 Urine Ketones NEGATIVE mg/dL (NEGATIVE) 11/25/19 10:00 Urine Blood LARGE (NEGATIVE) H 11/25/19 10:00 Urine Nitrite NEGATIVE (NEGATIVE) 11/25/19 10:00 Urine Bilirubin NEGATIVE (NEGATIVE) 11/25/19 10:00 Urine Urobilinogen NEGATIVE mg/dL (<2.0) 11/25/19 10:00 Ur Leukocyte Esterase MODERATE (NEGATIVE) H 11/25/19 10:00 Urine Ascorbic Acid NEGATIVE (NEGATIVE) 11/25/19 10:00 Urine Opiates Screen NEGATIVE 11/25/19 10:00 Urine Methadone Screen NEGATIVE 11/25/19 10:00 Ur Barbiturates Screen NEGATIVE 11/25/19 10:00 Ur Phencyclidine Scrn NEGATIVE 11/25/19 10:00 Ur Amphetamines Screen NEGATIVE 11/25/19 10:00 U Benzodiazepines Scrn NEGATIVE 11/25/19 10:00 Urine Cocaine Screen NEGATIVE 11/25/19 10:00 U Marijuana (THC) Screen NEGATIVE 11/25/19 10:00 RPR NONREACTIVE (NONREACTIVE) 11/25/19 08:40 Blood Type O POSITIVE 11/25/19 08:40 Antibody Screen NEGATIVE 11/25/19 08:40
[2019-11-27 11:37] VITALS: BP 107/63
--- NOTE | 2019-11-30 14:04 | Delivery Summary ---
Del Sum A-C Datetime Report Generated by CPN: 11/30/2019 14:04 DELIVERY PERSONNEL DELIVERY PERSONNEL: [id number] Delivery Doctor:: Radha Lucas MD Labor and Delivery Nurse:: MARISELA Saini Labor and Delivery Nurse:: Deonte Laurent RN Pomology Teacher/CHILD CARE COOK: Marybeth Neves, ST Additional Personnel: : Izzy Rojas RN MATERNAL INFORMATION Delivery Anesthesia: None Medications After Delivery: Pitocin 10 Units IM Estimated Blood Loss (ml): 250 Maternal Complications: Precipitous Labor (<3hrs) LABOR SUMMARY EDC: 11/25/2019 00:00 No. Babies in Womb: 1 Attempted: No Labor Anesthesia: None LABOR INFORMATION Reason for Induction: Not Applicable Onset of Labor: 11/25/2019 03:00 Complete Dilatation: 11/25/2019 07:07 Oxytocin: N/A Group B Beta Strep: positive Antibiotics # of Doses: 0 Antibiotics Time of Last Dose: 0 Name of Antibiotic Given: 0 Steroids Given: None Reason Steroids Not Administered: Not Applicable MEMBRANES Membranes Rupture Method: Spontaneous Rupture of Membranes: 11/25/2019 07:22 Length of Rupture (hr): 0.05 Amniotic Fluid Color: Clear Amniotic Fluid Amount: Small Amniotic Fluid Odor: Normal STAGES OF LABOR Stage 1 hr: 4 Stage 1 min: 7 Stage 2 hr: 0 Stage 2 min: 18 Stage 3 hr: 0 Stage 3 min: 4 Total Time in Labor hr: 4 Total Time in Labor min: 29 VAGINAL DELIVERY Episiotomy: None Laceration #1: None Laceration Extension #1: N/A Laceration #2: None Laceration Extension #2: N/A Laceration #3: None Laceration Extension #3: N/A Laceration Repair: Not Applicable Laceration Repair Note: No new laceration today. Old healed perineal laceration noted Sponge Count Correct: Vaginal Sweep Performed Sharps Count Correct: Yes BABY A INFORMATION Infant Delivery Date/Time: 11/25/2019 07:25 Method of Delivery: Vaginal Method of Delivery: Vaginal Born in Route : No : N/A Forceps: N/A Vacuum Extraction: N/A Shoulder Dystocia : No PRESENTATION/POSITION BABY A Presentation: Cephalic Cephalic Presentation: Vertex Vertex Position: Left Occipital Anterior Breech Presentation: N/A PLACENTA INFORMATION BABY A Placenta Delivery Time : 11/25/2019 07:29 Placenta Method of Delivery: Spontaneous Placenta Method of Delivery: Spontaneous Placenta Status: Delivered SCORES BABY A Heart Rate 1 min: >100 bpm Resp Effort 1 min: Good Cry Reflex Irritability 1 min: Cough or Sneeze or Pulls Away Muscle Tone 1 min: Active Motion Color 1 min: Completely [place] SCORE 1 MIN: 10 Heart Rate 5 min: >100 bpm Resp Effort 5 min: Good Cry Reflex Irritability 5 min: Cough or Sneeze or Pulls Away Muscle Tone 5 min: Active Motion Color 5 min: Completely [place] SCORE 5 MIN: 10 INFANT INFORMATION BABY A Gestational Age at Delivery: 40.0 Gestational Status: Full Term- 39- 40.6 Weeks Infant Outcome : Liveborn Condition : Stable Infant Sex: Male Sex: Male IDENTIFICATION BABY A Verification Date/Time: 11/25/2019 07:47 ID Band Number: [id number] Mother's Name Verified: Yes Infant RN Verifying : D Dahlia RN/BL Nacholund RN WEIGHT/LENGTH BABY A Infant Birthweight (gm): 3620 Weight (lb): 8 Weight (oz): 0 Infant Length (in): 20.25 Infant Length (cm): 51.44 CORD INFORMATION BABY A No. Cord Vessels: 3 Nuchal Cord : N/A Cord Blood Taken: Yes-For Eval (Mom's Blood Type - or O+) Infant Suction: None ASSESSMENT BABY A Infant Complications: None Physical Findings at Delivery: Within Normal Limits Skin to Skin: Yes Skin to Skin Time (min): 30 Hydraulic Design Engineer/ALS Called : No Care By: Cuca Villagomez RN Transferred To: Remains with Mother BABY B INFORMATION : N/A SIGNATURES Signature: with User ID: [email or web address]
== END 2019-11-27 14:25 | disposition home or self-care (01) | DRG 807 ==
LOC: LC 06:45 → LR 07:14 → 2S 10:43
PROVIDERS: ADMIT Obstetrics & Gynecology; ATTEND Obstetrics & Gynecology
PROC: 10E0XZZ Delivery of Products of Conception, External Approach (ICD-10-PCS; principal; 2019-11-25)
DX: O99.824 Streptococcus B carrier state complicating childbirth (principal); Z37.0 Single live birth; O62.3 Precipitate labor; Z3A.40 40 weeks gestation of pregnancy
CPT/HCPCS: 36415; 80307; 81005; 85025; 85027; 86592; 86850; 86900; 86901; 90715; J2590; J3490

== ENCOUNTER 2020-07-24 14:26 | Emergency (ER) | payer MEDICAID ==
--- NOTE | 2020-07-24 15:15 | ER Document Report ---
ED Medical Screen (RME) - General Chief Complaint: Psych Problem Stated Complaint: PSYCH Time Seen by Provider: 07/24/20 15:04 Primary Care Provider: KASANDRA BELTRÁN MD [Primary Care Provider] - Follow up as needed Mode of Arrival: Wheelchair Information source: Patient Notes: Patient is a 25-year-old female presenting to the emergency department with her 's concern that she may be having depression. Patient has 3 children, her youngest is 8 months old. With each child right at 8 months she has become despondent, not responding, not speaking. Her reports that the last 2 pregnancies these episodes lasted approximately 16 days. She did require hospitalization for #1. This time the symptoms started about 3 days ago, she has been despondent, not speaking. He has had to bathe her and provide total care for her. She is awake, looking at me but will not answer any questions. is unaware of any mental health diagnoses that patient currently has, she does not take any prescription medications. I have greeted and performed a rapid initial assessment of this patient. A comprehensive ED assessment and evaluation of the patient, analysis of test results and completion of the medical decision making process will be conducted by additional ED providers. I have specifically instructed the patient or family members with the patient to immediately return to any nursing staff should anything change in the patient's condition or with their chief complaint. TRAVEL OUTSIDE OF THE [place] IN LAST 30 DAYS: No - Related Data Allergies/Adverse Reactions: ibuprofen Adverse Reaction (Verified 07/24/20 15:08) anemia Past Medical History - Social History Family history: None. denies: Arthritis, CAD, CVA, DM, Hyperlipidemia, Hypertension, Malignancy, Thyroid Disfunction Endocrine Medical History: Denies: Hx Diabetes Mellitus Type 1 Renal/ Medical History: Denies: Hx Peritoneal Dialysis - Immunizations Immunizations up to date: No Hx Diphtheria, Pertussis, Tetanus Vaccination: No Physical Exam - Vital signs Vitals: Temp Pulse Resp BP Pulse Ox 99 F 110 H 16 119/85 99 07/24/20 15:02 07/24/20 15:02 07/24/20 15:02 07/24/20 15:02 07/24/20 15:02 Course - Vital Signs Vital signs: Temp Pulse Resp BP Pulse Ox 99 F 110 H 16 119/85 99 07/24/20 15:02 07/24/20 15:02 07/24/20 15:02 07/24/20 15:02 07/24/20 15:02 Doctor's Discharge - Discharge Referrals: KASANDRA BELTRÁN MD [Primary Care Provider] - Follow up as needed
[2020-07-24] MEDS ORDERED: BENZTROPINE MESYLATE INJ 2 MG/2 ML AMPULE IM ONE (16:46)
[2020-07-24] MEDS ORDERED: OLANZAPINE INJ/PF 10 MG SDV IM ONE (16:46)
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
[2020-07-24 18:23] LABS: ABSOLUTE BASOPHILS # (AUTO) 0.1 10^3/uL (0.0-0.2); ABSOLUTE EOSINOPHILS # (AUTO) 0.1 10^3/uL (0.0-0.6); ABSOLUTE LYMPHOCYTES (AUTO) 1.8 10^3/uL (0.5-4.7); ABSOLUTE MONOCYTES (AUTO) 0.4 10^3/uL (0.1-1.4); ABSOLUTE NEUT (AUTO) 6.5 10^3/uL (1.7-8.2); BASOPHILS % (AUTO) 1.5 % (0-2); EOSINOPHILS % (AUTO) 1.2 % (0-6); HEMATOCRIT 42.8 % (36.0-47.0); HEMOGLOBIN 14.5 g/dL (12.0-15.5); LYMPHOCYTES % (AUTO) 20.1 % (13-45); MEAN CORPUSCULAR VOLUME 94 fl (80-97); MONOCYTES % (AUTO) 4.8 % (3-13); PLATELET COUNT 398 10^3/uL (150-450); RED BLOOD COUNT 4.54 10^6/uL (3.72-5.28); SEGMENTED NEUTROPHILS % (AUTO) 72.4 % (42-78); TOTAL CELLS COUNTED % (AUTO) 100 %
[2020-07-24 18:45] LABS: ALBUMIN 5.5 g/dL (3.5-5.0); ALKALINE PHOSPHATASE 63 U/L (38-126); ASPARTATE AMINO TRANSFERASE 20 U/L (14-36); BILIRUBIN,DIRECT 0.2 mg/dL (0.0-0.4); BILIRUBIN,TOTAL 0.9 mg/dL (0.2-1.3); BLOOD UREA NITROGEN 16 mg/dL (7-20); CALCIUM 10.6 mg/dL (8.4-10.2); GLUCOSE 82 mg/dL (75-110); POTASSIUM 4.5 mmol/L (3.6-5.0); TOTAL PROTEIN 9.3 g/dL (6.3-8.2)
[2020-07-24 18:49] LABS: CARBON DIOXIDE 19 mmol/L (22-30); CHLORIDE 105 mmol/L (98-107)
[2020-07-24 18:51] LABS: ACETAMINOPHEN < 10 ug/mL (10-30); ALCOHOL < 10 mg/dL (NONE DETECTED); ANION GAP 20 (5-19); SALICYLATE < 1.0 mg/dL (2.0-20.0)
[2020-07-24] MEDS ORDERED: NORMAL SALINE 1000 ML 1,000 ML IV ONE (18:55)
--- NOTE | 2020-07-24 20:14 | ER Document Report ---
ED General - General Chief Complaint: Psych Problem Stated Complaint: PSYCH Time Seen by Provider: 07/24/20 15:04 Primary Care Provider: KASANDRA BELTRÁN MD [Primary Care Provider] - Follow up as needed Mode of Arrival: Wheelchair TRAVEL OUTSIDE OF THE [place] IN LAST 30 DAYS: No - HPI Notes: Patient is a 25-year-old female brought into the emergency department for evaluation by the . He is a primary historian, patient will not speak. Evidently he is concerned he might have depression. Her last child was 8 months ago. This is happened in the past. She is basically noncommunicative at this point, increasingly depressed. She will eat or drink. This is happened in the past. She has not made any suicidal gestures per the . - Related Data Allergies/Adverse Reactions: ibuprofen Adverse Reaction (Verified 07/24/20 15:08) anemia Home Medications: denies Past Medical History - General Information source: Patient - Social History Smoking Status: Current Every Day Smoker Chew tobacco use (# tins/day): No Frequency of alcohol use: None Drug Abuse: Marijuana Family History: None, Reviewed & Not Pertinent Endocrine Medical History: Denies: Hx Diabetes Mellitus Type 1 Renal/ Medical History: Denies: Hx Peritoneal Dialysis Psychiatric Medical History: Reports: Hx Depression - - Immunizations Immunizations up to date: No Hx Diphtheria, Pertussis, Tetanus Vaccination: No Review of Systems - Review of Systems -: Yes ROS unobtainable due to patient's medical condition - Patient currently not speaking Physical Exam - Vital signs Vitals: Temp Pulse Resp BP Pulse Ox 99 F 110 H 16 119/85 99 07/24/20 15:02 07/24/20 15:02 07/24/20 15:02 07/24/20 15:02 07/24/20 15:02 - Notes Notes: Is a 25-year-old female who appears her stated age, in no acute distress. She is a very flat affect, staring ahead. When I go to examine her, she initially allows this, then slowly moves to try and move my hand away from her. Vital signs reviewed, please refer to chart. Head is normocephalic, atraumatic. Pupi ls equal round, reactive to light. Neck is supple without meningismus. Heart is regular rate and rhythm. Lungs are clear to auscultation bilaterally. Abdomen is soft, nontender, normoactive bowel sounds throughout. Extremities without cyanosis, clubbing. Posterior calves are nontender. Peripheral pulses are equal. Skin is warm and dry. Patient is awake, alert, no gross facial asymmetry. She is slow to move, but does move all 4 extremities spontaneously. Course - Re-evaluation Re-evalutation: 07/24/20 20:11 Patient presents to the emergency department for evaluation. Laboratory investigations were ordered as per protocol. Patient did have psychosocial evaluation. They recommended Zyprexa and Cogentin. These were administered initially IM as the patient will not take anything by mouth. I was notified by nursing that she did in fact eat at one point. Her labs reveal mild dehydration, still awaiting urinalysis. IV fluids are ordered, but if the patient does increase her oral intake, I do not see any indication that these will have to be administered. Overnight provider notified of this finding. Assuming increased oral intake or addition of IV fluids, patient is medically cleared for further evaluation. - Vital Signs Vital signs: Temp Pulse Resp BP Pulse Ox 99 F 110 H 16 119/85 99 07/24/20 15:02 07/24/20 15:02 07/24/20 15:02 07/24/20 15:02 07/24/20 15:02 - Laboratory Result Diagrams: 07/24/20 18:00 07/24/20 18:00 Laboratory results interpreted by me: 07/24/20 18:00 Carbon Dioxide 19 L Anion Gap 20 H Calcium 10.6 H Total Protein 9.3 H Albumin 5.5 H Salicylates < 1.0 L Acetaminophen < 10 L Discharge - Discharge Clinical Impression: Catatonia Depression Qualifiers: Depression Type: unspecified Qualified Code(s): F32.9 - Major depressive disorder, single episode, unspecified Condition: Stable Disposition: OTHER Referrals: KASANDRA BELTRÁN MD [Primary Care Provider] - Follow up as needed
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
[2020-07-24 23:46] LABS: APPEARANCE,URINE SLIGHTLY-CLOUDY; BILIRUBIN,URINE NEGATIVE (NEGATIVE); COLOR,URINE YELLOW; GLUCOSE, URINE NEGATIVE (NEGATIVE); KETONES,URINE 80 mg/dL (NEGATIVE); LEUKOCYTE ESTERASE,URINE NEGATIVE (NEGATIVE); NITRITE,URINE NEGATIVE (NEGATIVE); PROTEIN,URINE >=500 mg/dL (NEGATIVE); URINE SPECIFIC GRAVITY 1.032
--- NOTE | 2020-07-24 23:46 | EKG REPORT ---
SEVERITY:- BORDERLINE ECG - SINUS ARRHYTHMIA, RATE 75-113 BORDERLINE T ABNORMALITIES, INFERIOR LEADS [facility] : Confirmed by: Los Curry 24-Jul-2020 23:46:09
[2020-07-25 00:04] LABS: URINE AMPHETAMINES SCREEN NEGATIVE; URINE BARBITURATES SCREEN NEGATIVE; URINE BENZODIAZEPINES SCREEN NEGATIVE; URINE COCAINE SCREEN NEGATIVE; URINE METHADONE SCREEN NEGATIVE; URINE PHENCYCLIDINE SCREEN NEGATIVE
[2020-07-25 00:10] LABS: URINE MARIJUANA (THC) SCREEN UNCONFIRMED POSITIVE
--- NOTE | 2020-07-25 13:22 | ER Document Report ---
Doctor's Note Notes: 07/25/20 13:10 PHYSICAL EXAMINATION: GENERAL: Well-appearing and in no acute distress. HEAD: Atraumatic, normocephalic. EYES: sclera anicteric, conjunctiva are normal. ENT: nares patent. Moist mucous membranes. NECK: Normal range of motion, supple without lymphadenopathy LUNGS: CTAB and equal. No wheezes rales or rhonchi. HEART: Regular rate and rhythm without murmurs ABDOMEN: Soft, nontender, normal bowel sounds, no guarding. EXTREMITIES: Normal range of motion PSYCH: Patient nonverbal, does make eye contact with provider when being spoken to SKIN: Warm, Dry, normal turgor, no rashes or lesions noted 07/25/20 16:09 Patient is medically clear for discharge, behavioral health team does not feel that patient meets IVC criteria as she is not a danger to herself or others at this time. Behavioral health team advises giving patient prescription for Zyprexa 5 mg twice a day and Cogentin 1 mg daily. Patient and family are agreeable with discharge plan of care and outpatient follow-up.
[2020-07-25] MEDS ORDERED: BENZTROPINE MESYLATE 1 MG TABLET PO SCH (14:00)
[2020-07-25] MEDS ORDERED: OLANZAPINE 5 MG TABLET PO SCH (14:00)
[2020-07-25 16:54] VITALS: BP 127/96
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
== END 2020-07-25 17:01 | disposition home or self-care (01) ==
LOC: ER 14:26
DX: F53.0 Postpartum depression (principal); F17.200 Nicotine dependence, unspecified, uncomplicated; F12.10 Cannabis abuse, uncomplicated; E86.0 Dehydration
CPT/HCPCS: 93005; 99285; 96372; 36415; 80307 ×4; 84703; 85025; 80053; 81001; 93010; J3490 ×3; J0515